=== PATIENT | male | born 1960 | race Caucasian/White ===

== ENCOUNTER 2019-10-01 09:26 | Inpatient (IN) | payer SELFPAY ==
[2019-10-01] VITALS (8 sets, daily range): BP systolic 115–132; BP diastolic 69–81; PULSE 58–86; RESP 16–18; TEMP 36.6–36.9; O2SAT 98–100; BMI 24.4
--- NOTE | ~2019-10-01 | XR_ITS ---
EXAMINATION: XR chest 1V portable DATE: 10/01/2019 10:58 INDICATION: Chronic obstructive pulmonary disease. Preop. TECHNIQUE: A single frontal view of the chest was obtained. COMPARISON: None. FINDINGS: Calcified right lung nodules are consistent with old granulomatous disease. No pleural effu miryam or pneumothorax. The heart size is normal. There are multiple old healed bilateral rib fractures . IMPRESSION: 1. No acute cardiopulmonary disease. Reviewed, dictated and finalized at location A. [employer] CENTER ASSOCIATE
--- NOTE | ~2019-10-01 | XR_ITS ---
XR surgery orthopedic 10/03/2019 10:52 Indication: Intraoperative fixation of left hip fracture Procedure: 4 fluoroscopic images of the left hip. 63 seconds of fluoroscopy. Comparison: 10/01/2019 Findings: Status post intraoperative repair of left femoral intertrochanteric fracture with trochlear nail and intramedullary josse. Fracture fragments in near-anatomic alignment post reduction. There is a single distal interlocking screw. Impression: 1: Near-anatomic alignment of left femoral intertrochanteric fracture status post intraoperative fixa tion. Reviewed, dictated and finalized at location B. ER HAND Impression: 1: Near-anatomic alignment of left femoral intertrochanteric fracture status po st intraoperative fixation.
--- NOTE | ~2019-10-01 | XR_ITS ---
EXAMINATION: XR hip LT 2V w AP pelvis DATE: 10/01/2019 10:14 INDICATION: Left hip pain and deformity. Fall. TECHNIQUE: An anteroposterior view of the pelvis and 2 views of left hip were obtained. COMPARISON: None. FINDINGS: There is a comminuted intertrochanteric fracture of proximal left femur. The main distal fr acture fragment demonstrates 35 degrees varus angulation, 11 mm posterior displacement, posterior ang ulation, and rotation. There is mild left hip osteoarthritis. IMPRESSION: 1. Comminuted intertrochanteric fracture of proximal left femur. 2. Mild left hip osteoarthrosis. Reviewed, dictated and finalized at location A. WAREHOUSE MANAGER
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
[2019-10-01] MEDS: HYDROMORPHONE HCL 1 MG/ML INJ IV PUSH ×3 (10:20→21:40)
--- NOTE | 2019-10-01 10:40 | ECG_ITS ---
Measurements Intervals [place] Rate: 51 P: 48 WA: 170 QRS: -63 QRSD: 85 T: 73 QT: 462 QTc: 426 Interpretive Statements SINUS BRADYCARDIA LEFT ANTERIOR FASCICULAR BLOCK ABNORMAL ECG Electronically Signed On 10-01-2019 12:06:52 PHLEBOTOMIST by Dae Lam D.O.
[2019-10-01] MEDS: MORPHINE SULFATE 4 MG/ML INJ IV PUSH (11:25)
[2019-10-01 11:31] LABS: Basophils Percent Auto 0.3 % (0.2-1.2); Hematocrit 41.7 % (42.0-52.0); Hemoglobin 14.2 g/dL (14.0-18.0); Immature Granulocyte Absolute 0.04 K/mm3 (0.00-0.031); Immature Granulocyte Percent A 0.4 % (0-0.5); Lymphocytes Absolute Auto 0.95 K/mm3 (0.9-3.2); Lymphocytes Percent Auto 9.7 % (18.3-44.2); Mean Corpuscular HGB Conc 34.1 g/dl (32-36); Mean Corpuscular Hemoglobin 33.8 pg (26-34); Mean Corpuscular Volume 99.3 fl (80-100); Mean Platelet Volume 10.5 fl (7.4-10.4); Monocytes Absolute Auto 1.1 K/mm3 (0.1-0.6); Monocytes Percent Auto 11.5 % (2.6-8.5); Neutrophils Absolute Auto 7.6 K/mm3 (1.3-6.7); Neutrophils Percent Auto 78.1 % (45.5-73.1); Platelet Count Result 154 k/mm3 (150-375); Red Cell Distribution Width 13.2 % (11.5-14.5); White Blood Count 9.8 K/mm3 (4.5-10.0)
[2019-10-01 11:40] LABS: INR 0.9; Prothrombin Time 12.3 Seconds (11.1-14.7)
[2019-10-01 11:41] LABS: Partial Thromboplastin Time 21.3 SECONDS (22.3-36.8)
[2019-10-01 11:44] LABS: Blood Urea Nitrogen 6 mg/dL (9-20); Calcium 8.3 mg/dL (8.4-10.2); Carbon Dioxide 21 mmol/L (22-30); Chloride 96 mmol/L (98-107); Estimated Glomerular Filt Rate > 60; Glucose 99 mg/dL (75-110); Sodium 130 mmol/L (137-145)
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
[2019-10-01] MEDS: ONDANSETRON INJ 4 MG/2 ML VIAL IV PUSH ×2 (16:01→21:45)
--- NOTE | 2019-10-01 16:41 | PC.NURSE ---
Patient arrived from ED at 1150 today.
[2019-10-01] MEDS: SODIUM CHLORIDE 0.9% IV 1,000 ML 100 ML IV CONT (17:34)
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
[2019-10-01] MEDS: PROPRANOLOL HCL 40 MG TABLET PO (22:43)
[2019-10-01] MEDS: GABAPENTIN 300 MG CAPSULE PO (22:43)
[2019-10-01] MEDS: NICOTINE (*PBKC) 21 MG PATCH 1 PATCH TRANSDERM (22:46)
[2019-10-02] MEDS: ONDANSETRON INJ 4 MG/2 ML VIAL IV PUSH ×2 (01:37→06:10)
[2019-10-02] MEDS: HYDROMORPHONE HCL 1 MG/ML INJ IV PUSH ×5 (01:38→23:33)
[2019-10-02] MEDS: SODIUM CHLORIDE 0.9% IV 1,000 ML 100 ML IV CONT ×2 (03:39→13:47)
[2019-10-02 06:00] VITALS: BP 146/71; PULSE 52; RESP 18; TEMP 37.1; O2SAT 94
[2019-10-02 06:37] LABS: Basophils Percent Auto 0.3 % (0.2-1.2); Eosinophils Absolute Auto 0.1 K/mm3 (0-0.3); Eosinophils Percent Auto 0.6 % (0-4.4); Hemoglobin 12.3 g/dL (14.0-18.0); Immature Granulocyte Absolute 0.03 K/mm3 (0.00-0.031); Immature Granulocyte Percent A 0.3 % (0-0.5); Immature Platelet Fraction Pct 7.4 % (0.9-11.2); Lymphocytes Absolute Auto 1.05 K/mm3 (0.9-3.2); Lymphocytes Percent Auto 11.8 % (18.3-44.2); Mean Corpuscular HGB Conc 32.4 g/dl (32-36); Mean Corpuscular Hemoglobin 33.9 pg (26-34); Mean Corpuscular Volume 104.7 fl (80-100); Mean Platelet Volume 11.3 fl (7.4-10.4); Monocytes Absolute Auto 1.2 K/mm3 (0.1-0.6); Monocytes Percent Auto 13.6 % (2.6-8.5); Neutrophils Absolute Auto 6.6 K/mm3 (1.3-6.7); Neutrophils Percent Auto 73.4 % (45.5-73.1); Platelet Count Result 109 k/mm3 (150-375); Red Blood Count 3.63 M/mm3 (4.6-6.20); Red Cell Distribution Width 13.4 % (11.5-14.5); White Blood Count 8.9 K/mm3 (4.5-10.0)
[2019-10-02 07:01] LABS: Magnesium 1.9 mg/dL (1.6-2.3)
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
[2019-10-02 08:08] LABS: Free T4 Free Thyroxine Reflex 1.49 ng/dL (0.78-2.19)
[2019-10-02 09:03] LABS: Total Triiodothyronine (T3) 0.98 NG/ML (0.97-1.69)
[2019-10-02 09:10] LABS: Blood Urea Nitrogen 8 mg/dL (9-20); Carbon Dioxide 23 mmol/L (22-30); Chloride 100 mmol/L (98-107); Estimated CRCL calculation 104 ml/min; Estimated Glomerular Filt Rate > 60; Glucose 98 mg/dL (75-110); Potassium 4.3 mmol/L (3.4-5.0); Sodium 132 mmol/L (137-145)
[2019-10-02 09:30] VITALS: BP 121/78; PULSE 58; RESP 18; TEMP 36.7; O2SAT 94
[2019-10-02 09:43] VITALS: PULSE 48
[2019-10-02] MEDS: THIAMINE HCL 100 MG TABLET PO (09:46)
[2019-10-02] MEDS: FOLIC ACID 1 MG TABLET PO (09:46)
[2019-10-02] MEDS: GABAPENTIN 300 MG CAPSULE PO ×3 (09:46→18:13)
--- NOTE | 2019-10-02 11:17 | PM.IMPN ---
Progress Note: A&P Assessment and Plan (1) Closed intertrochanteric fracture of left hip: Qualifiers: Encounter type: initial encounter Fracture alignment: displaced Qualified Code(s): S72.142A - Displaced intertrochanteric fracture of left femur, initial encounter for closed fracture Code(s): S72.142A - Displaced intertrochanteric fracture of left femur, initial encounter for closed fracture Status: Acute Assessment and Plan: Imaging shows comminuted intertrochanteric fracture proximal left femur. Appreciate Dr. Sheridan's recommendations and noted his plan for surgery tomorrow. Pain management and DVT prophylaxis per Orthopedics. He does have a history of multiple DVTs in the past (one in the left upper extremity a few years ago that resulted in partial amputation left 4th finger, remote history right leg DVT; was previously on chronic anticoagulation with Coumadin but has been off Coumadin for years per the patient.) (2) HTN (hypertension): Code(s): I10 - Essential (primary) hypertension Status: Chronic Assessment and Plan: Home propranolol held this morning due to bradycardia and pressures were controlled today without it. Continue to monitor BP and adjust as needed. (3) COPD (chronic obstructive pulmonary disease): Code(s): J44.9 - Chronic obstructive pulmonary disease, unspecified Status: Chronic Assessment and Plan: With continued tobacco abuse. Smoking cessation advised. Nebulized bronchodilators as needed. No evidence of respiratory distress today. (4) Anxiety: Code(s): F41.9 - Anxiety disorder, unspecified Status: Chronic Assessment and Plan: Calm and cooperative today. PRN Ativan. (5) Alcoholic: Code(s): F10.20 - Alcohol dependence, uncomplicated Status: Chronic Assessment and Plan: No signs or symptoms of acute withdrawal today. Continue monitoring with CIWA protocol. Librium PRN, thiamine and folic acid. (6) Hyponatremia: Code(s): E87.1 - Hypo-osmolality and hyponatremia Status: Acute Assessment and Plan: Likely secondary to alcohol use disorder. Continue IV hydration and monitor BMP. Subjective Date/time seen: 10/02/19 11:00 Interval history: Mr. Friedman is a 59yo M admitted for left hip fracture. He is unsure how he sustained this fracture, noted to be under the influence and thinks he may have fell but he does not remember. He reports left hip pain 02/09 at time of my exam but otherwise offers no complaints. He denies any chest pain, shortness of breath, nausea, or vomiting. He denies any sweating or anxiousness. Review of Systems Review of Systems: Narrative: Twelve systems were reviewed with pertinent positives and negatives as per HPI. Exam Narrative: Exam Narrative: General: Male resting supine in bed in no acute distress. HEENT: Normocephalic, EOMI, oral mucosa tacky, poor dentition. Cardiovascular: Rate and rhythm regular. Respiratory: Lungs clear to auscultation anteriorly and laterally. Non labored breathing, tolerating room air. Abdomen: Soft, non-tender, non-distended, bowel sounds present. Extremities: Left lower extremity in Esteves's traction, bilateral lower extremities neurovascularly intact. No edema appreciated. Neuro: No focal neurological deficits. Speech is clear. Objective Data Vital Signs Vital Signs: Last Vital Signs Temp 98.9 F 10/02/19 14:00 Pulse 57 L 10/02/19 14:00 Resp 18 10/02/19 14:00 BP 130/75 10/02/19 14:00 Pulse Ox 97 10/02/19 14:00 Intake/Output Intake/Output: Intake & Output 09/29/19 09/30/19 10/01/19 10/02/19 23:59 23:59 23:59 23:59 Intake Total 350 1309 Output Total 625 300 Balance -275 1009 Meds/Results Medications: A
[2019-10-02 14:00] VITALS: BP 130/75; PULSE 57; RESP 18; TEMP 37.2; O2SAT 97
[2019-10-02 16:00] VITALS: BP 151/81
[2019-10-02 22:00] VITALS: BP 116/87; PULSE 65; RESP 20; TEMP 37.4; O2SAT 98
[2019-10-03] VITALS (12 sets, daily range): BP systolic 111–155; BP diastolic 68–98; PULSE 56–85; RESP 12–20; TEMP 36.2–37.6; O2SAT 93–100
[2019-10-03] MEDS: HYDROMORPHONE HCL 1 MG/ML INJ IV PUSH (05:51)
[2019-10-03] MEDS: ceFAZolin 2 GM/D5W 50 ML 2 GM/50 ML BAG IVPB ×3 (05:54→22:24)
[2019-10-03 06:23] LABS: Hemoglobin 11.6 g/dL (14.0-18.0)
[2019-10-03 06:40] LABS: Blood Urea Nitrogen 5 mg/dL (9-20); Calcium 7.6 mg/dL (8.4-10.2); Carbon Dioxide 25 mmol/L (22-30); Chloride 99 mmol/L (98-107); Estimated CRCL calculation 104 ml/min; Estimated Glomerular Filt Rate > 60; Glucose 90 mg/dL (75-110); Magnesium 1.9 mg/dL (1.6-2.3); Potassium 4.1 mmol/L (3.4-5.0); Sodium 132 mmol/L (137-145)
--- NOTE | 2019-10-03 06:50 | PC.NURSE ---
notified that pt's pre-op antibiotic was already given this am. Orders received and entered. Pt. made aware that his pre-op antibiotic was given too early by mistake and that wants his dose of antibiotic to be repeated electronic engineering draftsperson to OR. Pt verbalizes understanding and is in agreement with this plan of care.
[2019-10-03] MEDS: LACTATED RINGERS 1,000 ML 30 ML IV CONT ×2 (08:30→11:06)
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
[2019-10-03] MEDS: ceFAZolin SODIUM 1 GM VIAL IV PUSH (09:23)
--- NOTE | 2019-10-03 09:48 | PC.NURSE ---
To OR per bed at 0810. Family at bedside, no complaints of pain, alert and orientated x3.
--- NOTE | 2019-10-03 10:17 | SUR.OPER ---
Indwelling catheter charted in error-rachel klein rn
--- NOTE | 2019-10-03 11:13 | PM.PROC ---
Procedure Note - Detailed Date of procedure: 10/03/19 Pre-op diagnosis: intertrochanteric hip fracture left Post-op diagnosis: same Procedure performed: ORIF left IT hip fracture Description of procedure: The patient was identified and proper site identified, then was taken to the operating room and after general anesthetic induction and intubation was transferred to the [place] table positioning supine taking care to properly pad position the torso and extremities. A provisional reduction was able to be obtained with fluoroscopic assistance. The left hip and thigh was then prepped and draped in the usual sterile fashion. A short incision was made proximal to the tip of the greater trochanter. Subcutaneous tissue was sharply dissected down to the gluteus fascia which was incised over the tip of the greater trochanter. An awl was used to create a starting hole through which a guide josse was inserted into the femoral canal verifying its position fluoroscopically. The one-step Reamer was used to prepare the entry point for the josse. A 125 degree x 11 mm short nail was then inserted to the appropriate level using the targeting device. Through a 2nd more distal incision under fluoroscopic visualization a 105 mm lag screw was inserted over a guidewire into the femoral neck and head securing it with the set screw. Through a 3rd more distal incision, using the targeting device, a distal interlocking screw was placed. The overall construct was assessed fluoroscopically on the AP and lateral views, and was noted to be satisfactory. The targeting device was removed. The wounds were irrigated with sterile antibiotic solution. The fascia was reapproximated with 0 Vicryl as was the deeper layers of the subcu along with 0 V lock. Skin edges were reapproximated with four 0 Monocryl and jewell. Sterile dressing was applied. The procedure was well tolerated. There were no known intraoperative complications. Perioperative antibiotics were administered. Anesthesia: GLMA Surgeon: Sánchez Sheridan MD Utility Worker Production: Jordon Casarez Estimated blood loss (mL): 50 Drains: No Packing: No Pathology: none sent Complications: No immediate complications Condition: stable Disposition: PACU
--- NOTE | 2019-10-03 11:54 | SUR.PHASEI ---
1148; REPORT FAXED TO FLOOR. PT AWAKE AND ALERT. STATES PAIN TOLERABLE. ATTEMPTED TO UPDATE FAMILY. AT LUNCH. 1154; REPORT GIVEN TO TATI ANNA
[2019-10-03] MEDS: NICOTINE (*PBKC) 21 MG PATCH 1 PATCH TRANSDERM (13:54)
[2019-10-03] MEDS: FOLIC ACID 1 MG TABLET PO (13:57)
[2019-10-03] MEDS: THIAMINE HCL 100 MG TABLET PO (13:58)
[2019-10-03] MEDS: SODIUM CHLORIDE 0.9% IV 1,000 ML 125 ML IV CONT (13:58)
[2019-10-03] MEDS: GABAPENTIN 300 MG CAPSULE PO ×2 (14:00→17:34)
--- NOTE | 2019-10-03 14:11 | PM.IMPN ---
Progress Note: A&P Assessment and Plan (1) Closed intertrochanteric fracture of left hip: Qualifiers: Encounter type: initial encounter Fracture alignment: displaced Qualified Code(s): S72.142A - Displaced intertrochanteric fracture of left femur, initial encounter for closed fracture Code(s): S72.142A - Displaced intertrochanteric fracture of left femur, initial encounter for closed fracture Status: Acute Assessment and Plan: Imaging shows comminuted intertrochanteric fracture proximal left femur. POD#0 s/p ORIF by Dr Sheridan. Wound care, pain control, and DVT prophylaxis per Orthopedics. 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 Resume propranolol today and monitor. (3) COPD (chronic obstructive pulmonary disease): Code(s): J44.9 - Chronic obstructive pulmonary disease, unspecified Status: Chronic Assessment and Plan: With continued tobacco abuse. Smoking cessation advised. Nebulized bronchodilators as needed. No evidence of respiratory distress today. (4) Anxiety: Code(s): F41.9 - Anxiety disorder, unspecified Status: Chronic Assessment and Plan: Calm and cooperative today. PRN Ativan. (5) Alcoholic: Code(s): F10.20 - Alcohol dependence, uncomplicated Status: Chronic Assessment and Plan: No signs or symptoms of acute withdrawal today. Continue monitoring with CIWA protocol. Librium PRN, thiamine and folic acid. (6) Hyponatremia: Code(s): E87.1 - Hypo-osmolality and hyponatremia Status: Acute Assessment and Plan: Likely secondary to alcohol use disorder. Continue IV hydration and monitor BMP. Subjective Date/time seen: 10/03/19 1345 Interval history: Mr. Friedman is a 59yo M admitted for left hip fracture seen this afternoon just after coming back from surgery. He reports he is tired but denies chest pain, nausea, or vomiting. Offers no complaints. Review of Systems Review of Systems: Narrative: Twelve systems were reviewed with pertinent positives and negatives as per HPI. Exam Narrative: Exam Narrative: General: Male resting supine in bed in no acute distress. HEENT: Normocephalic, EOMI, oral mucosa tacky, poor dentition. Cardiovascular: Rate and rhythm regular. Respiratory: Lungs clear to auscultation anteriorly and laterally. Non labored breathing, tolerating room air. Abdomen: Soft, non-tender, non-distended, bowel sounds present. Extremities: Dressings over left hip with minimal blood. Left lower extremity neurovascularly intact distal to the surgical site. No edema appreciated. Neuro: No focal neurological deficits. Speech is clear. Objective Data Vital Signs Vital Signs: Last Vital Signs Temp 97.1 F L 10/03/19 13:25 Pulse 66 10/03/19 13:25 Resp 16 10/03/19 13:25 BP 111/68 10/03/19 13:25 Pulse Ox 100 10/03/19 13:25 Intake/Output Intake/Output: Intake & Output 09/30/19 10/01/19 10/02/19 10/03/19 23:59 23:59 23:59 23:59 Intake Total 350 4290 900 Output Total 625 1500 1200 Balance -275 2790 -300 Meds/Results Medications: Active Medications Generic Name Dose Route Start Last Admin Trade Name Freq PRN Reason Stop Dose Admin Hydrocodone Bitart/Acetaminophen 1 tab 10/03/19 12:18 10/03/19 13:55 [place] 7.5-325 Mg PO 1 tab Q3H PRN Administration
--- NOTE | 2019-10-03 14:46 | PC.NURSE ---
Returned from OR at 1230.
[2019-10-03] MEDS: KETOROLAC 30 MG/ML VIAL (*BKC) IV PUSH ×2 (17:34→22:57)
[2019-10-03] MEDS: DOCUSATE SODIUM 100 MG CAPSULE PO (17:36)
[2019-10-03] MEDS: FAMOTIDINE 20 MG TABLET PO (21:41)
[2019-10-04] VITALS (7 sets, daily range): BP systolic 126–155; BP diastolic 61–85; PULSE 63–72; RESP 16–18; TEMP 36.6–37.1; O2SAT 93–100
[2019-10-04] MEDS: KETOROLAC 30 MG/ML VIAL (*BKC) IV PUSH (05:35)
[2019-10-04] MEDS: ceFAZolin 2 GM/D5W 50 ML 2 GM/50 ML BAG IVPB (05:39)
[2019-10-04 06:03] LABS: Hematocrit 29.9 % (42.0-52.0); Immature Granulocyte Absolute 0.07 K/mm3 (0.00-0.031); Immature Granulocyte Percent A 0.7 % (0-0.5); Lymphocytes Absolute Auto 0.66 K/mm3 (0.9-3.2); Lymphocytes Percent Auto 6.8 % (18.3-44.2); Mean Corpuscular HGB Conc 33.4 g/dl (32-36); Mean Corpuscular Hemoglobin 33.9 pg (26-34); Mean Corpuscular Volume 101.4 fl (80-100); Mean Platelet Volume 11.4 fl (7.4-10.4); Monocytes Absolute Auto 1.1 K/mm3 (0.1-0.6); Neutrophils Absolute Auto 7.9 K/mm3 (1.3-6.7); Neutrophils Percent Auto 81.5 % (45.5-73.1); Platelet Count Result 123 k/mm3 (150-375); Red Blood Count 2.95 M/mm3 (4.6-6.20); White Blood Count 9.7 K/mm3 (4.5-10.0)
[2019-10-04 06:20] LABS: Blood Urea Nitrogen 6 mg/dL (9-20); Calcium 7.8 mg/dL (8.4-10.2); Carbon Dioxide 24 mmol/L (22-30); Chloride 99 mmol/L (98-107); Estimated CRCL calculation 104 ml/min; Estimated Glomerular Filt Rate > 60; Glucose 109 mg/dL (75-110); Potassium 3.9 mmol/L (3.4-5.0); Sodium 133 mmol/L (137-145)
--- NOTE | 2019-10-04 07:43 | P.PNAN_ITS ---
Anes - Prog Note Post-Op Date/Time: 10/04/19 07:43 Cardiovascular status: normal Respiratory status: normal Airway patency: baseline Mental status: baseline Post-Op hydration status: normal Vital Signs: Last Vital Signs Temp 36.8 C 10/04/19 06:00 Pulse 63 10/04/19 06:00 Resp 16 10/04/19 06:00 BP 135/71 10/04/19 06:00 Pulse Ox 100 10/04/19 06:00 I/O: Intake & Output 10/03/19 10/03/19 10/04/19 15:59 23:59 07:59 Intake Total 400 1050 500 Output Total 200 500 800 Balance 200 550 -300 Laboratory Tests 10/04/19 05:45 10/04/19 05:45 10/04/19 10/04/19 05:45 05:45 WBC 9.7 RBC 2.95 L Hgb 10.0 L Hct 29.9 L MCV 101.4 H MCH 33.9 MCHC 33.4 RDW 13.0 Plt Count 123 L MPV 11.4 H Immature Gran % (Auto) 0.7 H Neut % (Auto) 81.5 H Lymph % (Auto) 6.8 L [place] % (Auto) 11.0 H Eos % (Auto) 0.0 Baso % (Auto) 0.0 L Lymph # (Auto) 0.66 L [place] # (Auto) 1.1 H Eos # (Auto) 0.0 Baso # (Auto) 0.0 Abs Immat Gran (auto) 0.07 H Absolute Neuts (auto) 7.9 H Absolute Nucleated RBC 0.0 Nucleated RBC % 0.0 Sodium 133 L Potassium 3.9 Chloride 99 Carbon Dioxide 24 BUN 6 L Creatinine 0.60 L Estim Creat Clear Calc 104 Estimated GFR > 60 Glucose 109 Calcium 7.8 L Post-procedural complaints: none Patient Feedback: Patient satisfied with anesthetic care.
[2019-10-04] MEDS: FAMOTIDINE 20 MG TABLET PO ×2 (09:08→21:15)
[2019-10-04] MEDS: FOLIC ACID 1 MG TABLET PO (09:08)
[2019-10-04] MEDS: DOCUSATE SODIUM 100 MG CAPSULE PO ×2 (09:08→17:56)
[2019-10-04] MEDS: NICOTINE (*PBKC) 21 MG PATCH 1 PATCH TRANSDERM (09:08)
[2019-10-04] MEDS: GABAPENTIN 300 MG CAPSULE PO ×3 (09:08→17:56)
[2019-10-04] MEDS: THIAMINE HCL 100 MG TABLET PO (09:11)
[2019-10-04] MEDS: ENOXAPARIN 40 MG/0.4 ML SYRINGE SUB-Q (12:03)
--- NOTE | 2019-10-04 12:34 | PM.PNORT ---
Progress Note: A&P Assessment and Plan (1) Closed intertrochanteric fracture of left hip: Qualifiers: Encounter type: initial encounter Fracture alignment: displaced Qualified Code(s): S72.142A - Displaced intertrochanteric fracture of left femur, initial encounter for closed fracture Code(s): S72.142A - Displaced intertrochanteric fracture of left femur, initial encounter for closed fracture Status: Acute Assessment and Plan: therapy has begun. He likely is going to need replacement. He understands that he is going to be toe-touch weight-bearing left lower extremity for a minimum of eight weeks. Following. Subjective Subjective Date/Time Seen: 10/04/19 12:34 Post Op day: 1 ( Status post ORIF left IT hip fracture) Review of Systems Constitutional: Constitutional: Denies chills and Denies fever(s) Eyes: Eyes: Reports no additional eye complaints ENT: Reports system reviewed and no additional complaints, except as documented Cardiovascular: Cardiovascular: Denies chest pain and Denies dyspnea on exertion Respiratory: Respiratory: Reports no additional respiratory complaints and Denies dyspnea on exertion Gastrointestinal: Gastrointestinal: Denies abdominal pain and Denies bloating Exam Const: General: cooperative, no acute distress and alert Nutritional Appearance: other Orientation/consciousness: patient oriented x3 Limitations: no limitations HENMT: Head: normal to inspection Ears: hearing grossly normal bilaterally Face and sinus: face symmetric Mouth: Yes moist mucous membranes Teeth and gingiva: dentition not fair Eyes: Alignment and Position: alignment normal and position normal Sclera: sclerae normal Neck: Neck: normal visual inspection and nontender Chest: Chest palpation & inspection: normal inspection of the chest Resp: Effort & Inspection: normal respiratory effort and able to speak in complete sentences GI: Inspection: normal to inspection Skin: General skin exam: normal color Rashes: no rashes Neuro: General: patient oriented x3 Cognition (Neuro): normal cognition Speech: normal speech Gait exam (Neuro): Other gait observations present Motor exam (neuro): 5/5 motor strength present throughout Sensory Exam: normal sensation Extrem: General: normal to inspection and other Other: Exam of the left hip reveals some bruising as expected, minimal additional swelling. There is scant serosanguineous drainage from the wounds. Grossly, neurovascular status is intact left lower extremity. Calves negative bilaterally. Psych: Appearance: grossly normal Mental Status: mental status grossly normal Objective Data Vital Signs Vital Signs: Vital Signs - 24 hr 10/03/19 12:40 10/03/19 12:55 10/03/19 13:25 Temperature 97.6 F 98.0 F 97.1 F L Pulse Rate 77 81 66 Respiratory Rate 16 16 16 Blood Pressure 119/84 125/74 111/68 Pulse Oximetry 100 93 100 10/03/19 14:25 10/03/19 22:00 10/04/19 02:00 Temperature 97.2 F L 98.7 F 98 F Pulse Rate 56 L 76 71 Respiratory Rate 16 16 16 Blood Pressure 136/82 137/79 129/61 Pulse Oximetry 100 100 93 10/04/19 06:00 10/04/19 09:35 10/04/19 10:00 Temperature 98.2 F 98.6 F Pulse Rate 63 70 Respiratory Rate 16 17 Blood Pressure 135/71 132/70 Pulse Oximetry 100 99 100 Intake/Output Intake/Output: Intake & Output 10/01/19 10/02/19 10/03/19 10/04/19 23:59 23:59 23:59 23:59 Intake Total 350 / 350 4290 / 4290 2000 / 2000 500 / 500 Output Total 625 / 625 1500 / 1500 1700 / 1700 800 / 800 Balance -275 / -275 2790 / 2790 300 / 300 -300 / -300 Meds/Results Medications: Active Medications Generic Name Dose Route Start Last Admin Trade Name Freq PRN Reason Stop Dose Admin Hydrocodone Bitart/Acetaminophen 1 tab 10/03/19 12:18 10/04/19 09:12 [place] 7.5-325 Mg PO 1 tab Q3H PRN Administration Pain Rated 4-6 Al Hydrox/Mg Hydrox/Simethicone 30 ml 10/03/19 12:18 Mylanta PO Q6H PRN I
--- NOTE | 2019-10-04 16:18 | PM.IMPN ---
Progress Note: A&P Assessment and Plan (1) Closed intertrochanteric fracture of left hip: Qualifiers: Encounter type: initial encounter Fracture alignment: displaced Qualified Code(s): S72.142A - Displaced intertrochanteric fracture of left femur, initial encounter for closed fracture Code(s): S72.142A - Displaced intertrochanteric fracture of left femur, initial encounter for closed fracture Status: Acute Assessment and Plan: -----POD # [address] Sheridan. Imaging in the ER shows comminuted intertrochanteric fracture proximal left femur. Wound care, pain control, and DVT prophylaxis per Orthopedics. 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 Continue propranolol (3) COPD (chronic obstructive pulmonary disease): Code(s): J44.9 - Chronic obstructive pulmonary disease, unspecified Status: Chronic Assessment and Plan: ------With continued tobacco abuse. Smoking cessation advised. Nebulized bronchodilators as needed. No evidence of respiratory distress today but did have some wheezing. No Pna suspected. Encouraged IS use. (4) Anxiety: Code(s): F41.9 - Anxiety disorder, unspecified Status: Chronic Assessment and Plan: -----Calm and cooperative today. PRN Ativan. (5) Alcoholic: Code(s): F10.20 - Alcohol dependence, uncomplicated Status: Chronic Assessment and Plan: -------No signs or symptoms of acute withdrawal today. Continue monitoring with CIWA protocol. Librium PRN, thiamine and folic acid. (6) Hyponatremia: Code(s): E87.1 - Hypo-osmolality and hyponatremia Status: Acute Assessment and Plan: ------Likely secondary to alcohol use disorder and pain. 133 today. Additional Plan . Time Spent With Patient Time with patient: 25 - 35 minutes Subjective Date/time seen: 10/04/19 16:18 Interval history: Pt is a 59 y/o male here for hip fracture. Pt states he has hip pain at rest which is worse with movement. He had a BM today and has been eating and drinking well. he denies visual disturbances or hallucinations. He feels as though he is a little wheezy. He denies cP, SOB, fevers, or chills. Review of Systems Review of Systems: All systems reviewed & are unremarkable except as noted in HPI and below Exam Narrative: Exam Narrative: General: Well developed well nourished patient resting in bed in NAD HEENT: normocephalic Neck: supple Neuro: Alert and oriented x4. no tremor CV:RRR Resp: expiratory wheezing throughout. cleared with cough and deep breaths. Abd: Soft, non distended. No pain to palpation. Positive bowel sounds Extremities: Bruising to the left hip with flank brusing and penile involvment. Pain to palpation. Some mild bleed at the surgical site. Pulses and sensory intact. Objective Data Vital Signs Vital Signs: Vital Signs - 24 hr 10/03/19 22:00 10/04/19 02:00 10/04/19 06:00 Temperature 98.7 F 98 F 98.2 F Pulse Rate 76 71 63 Respiratory Rate 16 16 16 Blood Pressure 137/79 129/61 135/71 Pulse Oximetry 100 93 100 10/04/19 09:35 10/04/19 10:00 10/04/19 14:00 Temperature 98.6 F 98.2 F Pulse Rate 70 71 Respiratory Rate 17 16 Blood Pressure 132/70 126/85 Pulse Oximetry 99 100 100 Intake/Output Intake/Output: Intake & Output 10/01/19 10/02/19 10/03/19 10/04/19 23:59 23:59 23:59 23:59 Intake Total 350 4290 2000 740 Output Total 625 1500 1700 800 Balance -275 2790 300 -60 Meds/Results Medications: Active Medications Generi
[2019-10-05 06:08] LABS: Hematocrit 29.5 % (42.0-52.0); Hemoglobin 9.9 g/dL (14.0-18.0)
[2019-10-05 06:30] LABS: Blood Urea Nitrogen 5 mg/dL (9-20); Calcium 7.5 mg/dL (8.4-10.2); Carbon Dioxide 28 mmol/L (22-30); Chloride 100 mmol/L (98-107); Estimated CRCL calculation 91 ml/min; Estimated Glomerular Filt Rate > 60; Glucose 85 mg/dL (75-110); Potassium 3.5 mmol/L (3.4-5.0); Sodium 135 mmol/L (137-145)
[2019-10-05 06:33] VITALS: BP 119/60; PULSE 56; RESP 16; TEMP 36.6; O2SAT 96
[2019-10-05 07:36] LABS: Folic Acid 12.6 ng/mL (2.76->20)
[2019-10-05] MEDS: DOCUSATE SODIUM 100 MG CAPSULE PO ×2 (08:02→17:37)
[2019-10-05] MEDS: THIAMINE HCL 100 MG TABLET PO (08:02)
[2019-10-05] MEDS: FAMOTIDINE 20 MG TABLET PO ×2 (08:02→20:46)
[2019-10-05] MEDS: GABAPENTIN 300 MG CAPSULE PO ×3 (08:02→17:37)
[2019-10-05] MEDS: FOLIC ACID 1 MG TABLET PO (08:02)
[2019-10-05] MEDS: NICOTINE (*PBKC) 21 MG PATCH 1 PATCH TRANSDERM (08:04)
[2019-10-05] MEDS: CYANOCOBALAMIN INJ 1,000 MCG/ML VIAL 1000 MCG IM (13:14)
[2019-10-05] MEDS: ENOXAPARIN 40 MG/0.4 ML SYRINGE SUB-Q (13:23)
--- NOTE | 2019-10-05 15:08 | PM.IMPN ---
Progress Note: A&P Assessment and Plan (1) Closed intertrochanteric fracture of left hip: Qualifiers: Encounter type: initial encounter Fracture alignment: displaced Qualified Code(s): S72.142A - Displaced intertrochanteric fracture of left femur, initial encounter for closed fracture Code(s): S72.142A - Displaced intertrochanteric fracture of left femur, initial encounter for closed fracture Status: Acute Assessment and Plan: -----POD # [address] Sheridan. Imaging in the ER shows comminuted intertrochanteric fracture proximal left femur. Wound care, pain control, and DVT prophylaxis per Orthopedics. 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 Ortho recoomends 5mg BID of eliquis at discharge and to discharge to SNF. Awaiting SNF placement. (2) HTN (hypertension): Code(s): I10 - Essential (primary) hypertension Status: Chronic Assessment and Plan: ------119/60 Continue propranolol (3) COPD (chronic obstructive pulmonary disease): Code(s): J44.9 - Chronic obstructive pulmonary disease, unspecified Status: Chronic Assessment and Plan: ------With continued tobacco abuse. Smoking cessation advised. Nebulized bronchodilators as needed. No evidence of respiratory distress today but did have some wheezing which has improved since yesterday. No PNA suspected. Encouraged IS use. (4) Anxiety: Code(s): F41.9 - Anxiety disorder, unspecified Status: Chronic Assessment and Plan: -----Calm and cooperative today. PRN Ativan. (5) Alcoholic: Code(s): F10.20 - Alcohol dependence, uncomplicated Status: Chronic Assessment and Plan: -------No signs or symptoms of acute withdrawal today. CIWA no longer necessary. low on b12, this was replaced. Continue thiamin and folate (6) Hyponatremia: Code(s): E87.1 - Hypo-osmolality and hyponatremia Status: Acute Assessment and Plan: ------Likely secondary to alcohol use disorder and pain. 135 today. Additional Plan . Subjective Date/time seen: 10/05/19 15:08 Interval history: Pt is a 59 y/o male here for hip fracture. Pt states he has hip pain at rest which is worse with movement. He had a BM yesterday but none today. He did well with physical therapy and really wants to go home. I explained to him why it is being recommended that he goes to SNF. He said he will think about it. He says he drinks about 1-2 beers a day and his last drink was on Thursday. He has not had any withdrawal symptoms such as seizures, tremors, or hallucinations. He denies cP, SOB, fevers, or chills. Review of Systems Review of Systems: All systems reviewed & are unremarkable except as noted in HPI and below Exam Narrative: Exam Narrative: General: Well developed well nourished patient resting in bed in NAD HEENT: normocephalic Neck: supple Neuro: Alert and oriented x4. no tremor CV:RRR Resp: Mild expiratory wheezing throughout. cleared with cough and deep breaths--improved today. Abd: Soft, non distended. No pain to palpation. Positive bowel sounds Extremities: Bruising to the left hip with flank brusing and penile involvement. Pain to palpation. Some mild bleed at the surgical site on the gauze. Pulses and sensory intact. Objective Data Vital Signs Vital Signs: Vital Signs - 24 hr 10/04/19 17:41 10/04/19 22:00 10/05/19 06:33 Temperature 98.7 F 97.9 F 98 F Pulse Rate 69 72 56 L Respiratory Rate 18 18 16 Blood Pressure 155/76 H 149/75 H 119/60 Pulse Oximetry 100 100 96 Intake/Output Intake/Output: Intake & Output 10/02/19 10/03/19 10/04/19 10/05/19 23:59 23:59 23:59 23:59 Intake Total
[2019-10-05 22:05] VITALS: BP 135/85; PULSE 66; RESP 18; TEMP 36.9; O2SAT 100
[2019-10-06 06:00] VITALS: BP 127/77; PULSE 65; RESP 16; TEMP 36.8; O2SAT 92
[2019-10-06 06:51] LABS: Hematocrit 32.8 % (42.0-52.0); Hemoglobin 10.7 g/dL (14.0-18.0)
[2019-10-06 06:59] LABS: Blood Urea Nitrogen 6 mg/dL (9-20); Calcium 7.9 mg/dL (8.4-10.2); Carbon Dioxide 23 mmol/L (22-30); Chloride 102 mmol/L (98-107); Estimated CRCL calculation 91 ml/min; Estimated Glomerular Filt Rate > 60; Glucose 87 mg/dL (75-110); Potassium 3.7 mmol/L (3.4-5.0); Sodium 135 mmol/L (137-145)
[2019-10-06] MEDS: DOCUSATE SODIUM 100 MG CAPSULE PO ×2 (08:57→17:56)
[2019-10-06] MEDS: ENOXAPARIN 40 MG/0.4 ML SYRINGE SUB-Q (08:57)
[2019-10-06] MEDS: FAMOTIDINE 20 MG TABLET PO ×2 (08:58→20:43)
[2019-10-06] MEDS: FOLIC ACID 1 MG TABLET PO (08:58)
[2019-10-06] MEDS: NICOTINE (*PBKC) 21 MG PATCH 1 PATCH TRANSDERM (08:58)
[2019-10-06] MEDS: GABAPENTIN 300 MG CAPSULE PO ×3 (08:58→17:56)
[2019-10-06] MEDS: THIAMINE HCL 100 MG TABLET PO (08:58)
[2019-10-06] MEDS: CYANOCOBALAMIN 1,000 MCG TABLET 1000 MCG PO (09:00)
--- NOTE | 2019-10-06 10:54 | PM.PNORT ---
Progress Note: A&P Assessment and Plan (1) Closed intertrochanteric fracture of left hip: Qualifiers: Encounter type: initial encounter Fracture alignment: displaced Qualified Code(s): S72.142A - Displaced intertrochanteric fracture of left femur, initial encounter for closed fracture Code(s): S72.142A - Displaced intertrochanteric fracture of left femur, initial encounter for closed fracture Status: Acute Assessment and Plan: Postop day three left IT hip fracture stabilization. Making good progress. Awaiting placement. I discussed with him the benefits of rehab versus trying to go home. Following. Subjective Subjective Date/Time Seen: 10/06/19 10:54 Post Op day: 3 (ORIF left IT hip fracture) Interval history: Doing better and tolerating therapy quite well. No new complaints. Review of Systems Constitutional: Constitutional: Denies chills and Denies fever(s) Eyes: Eyes: Reports no additional eye complaints ENT: Reports system reviewed and no additional complaints, except as documented Cardiovascular: Cardiovascular: Denies chest pain and Denies dyspnea on exertion Respiratory: Respiratory: Reports no additional respiratory complaints and Denies dyspnea on exertion Gastrointestinal: Gastrointestinal: Denies abdominal pain and Denies bloating Exam Const: General: cooperative, no acute distress and alert Nutritional Appearance: other Orientation/consciousness: patient oriented x3 Limitations: no limitations HENMT: Head: normal to inspection Ears: hearing grossly normal bilaterally Face and sinus: face symmetric Mouth: Yes moist mucous membranes Teeth and gingiva: poor dentition Eyes: Alignment and Position: alignment normal and position normal Sclera: sclerae normal Neck: Neck: normal visual inspection and nontender Chest: Chest palpation & inspection: normal inspection of the chest Resp: Effort & Inspection: normal respiratory effort and able to speak in complete sentences GI: Inspection: other (Nontender, nondistended) Skin: General skin exam: normal color Rashes: no rashes Neuro: General: patient oriented x3 Cognition (Neuro): normal cognition Speech: normal speech Motor exam (neuro): Other motor observations present (Decent strength throughout left lower extremity) Sensory Exam: normal sensation Extrem: General: normal to inspection and other Other: Exam of the left hip wounds shows that there is still some serosanguineous drainage coming from the proximal wound but no erythema surrounding this. Minimal discomfort with manipulation of the left hip. Grossly, motor and sensory function to the left lower extremity is intact. Psych: Appearance: grossly normal Mental Status: mental status grossly normal Objective Data Vital Signs Vital Signs: Vital Signs - 24 hr 10/05/19 22:05 10/06/19 06:00 Temperature 98.4 F 98.3 F Pulse Rate 66 65 Respiratory Rate 18 16 Blood Pressure 135/85 127/77 Pulse Oximetry 100 92 Intake/Output Intake/Output: Intake & Output 10/03/19 10/04/19 10/05/19 10/06/19 23:59 23:59 23:59 23:59 Intake Total 1999 1530 / 1530 940 / 940 300 / 300 Output Total 1700 / 1700 800 / 800 1000 / 1000 Balance 300 / 300 730 / 730 -60 / -60 300 / 300 Meds/Results Medications: Active Medications Generic Name Dose Route Start Last Admin Trade Name Freq PRN Reason Stop Dose Admin Hydrocodone Bitart/Acetaminophen 1 tab 10/03/19 12:18 10/05/19 20:50 [place] 7.5-325 Mg PO 1 tab Q3H PRN Administration Pain Rated 4-6 Al Hydrox/Mg Hydrox/Simethicone 30 ml 10/03/19 12:18 Mylanta PO Q6H PRN Indigestion Chlordiazepoxide HCl 25 mg 10/01/19 22:17 Librium Po PO Q6H PRN Withdrawal Cyanocobalamin 1,000 mcg 10/06/19 09:00 Vitamin B-12 Tab PO QAM SELENA Docusate Sodium 100 mg 10/03/19 17:00 10/06/19 08:57 Colace Capsule PO 100 mg BID SELENA Administration Enoxaparin Sodium 40 m
[2019-10-06 14:58] VITALS: BP 123/64; PULSE 79; RESP 16; TEMP 36.3; O2SAT 100
--- NOTE | 2019-10-06 16:16 | PM.IMPN ---
Progress Note: A&P Assessment and Plan (1) Closed intertrochanteric fracture of left hip: Qualifiers: Encounter type: initial encounter Fracture alignment: displaced Qualified Code(s): S72.142A - Displaced intertrochanteric fracture of left femur, initial encounter for closed fracture Code(s): S72.142A - Displaced intertrochanteric fracture of left femur, initial encounter for closed fracture Status: Acute Assessment and Plan: -----POD # [address] Sheridan. Imaging in the ER shows comminuted intertrochanteric fracture proximal left femur. Wound care, pain control, and DVT prophylaxis per Orthopedics. 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 Ortho recoomends 5mg BID of eliquis at discharge and to discharge to SNF. Awaiting SNF placement. (2) HTN (hypertension): Code(s): I10 - Essential (primary) hypertension Status: Chronic Assessment and Plan: ------Last bp 123/64. Continue propranolol (3) COPD (chronic obstructive pulmonary disease): Code(s): J44.9 - Chronic obstructive pulmonary disease, unspecified Status: Chronic Assessment and Plan: ------With continued tobacco abuse. Smoking cessation advised. Nebulized bronchodilators as needed. No evidence of respiratory distress today. No PNA suspected. Encouraged IS use. (4) Anxiety: Code(s): F41.9 - Anxiety disorder, unspecified Status: Chronic Assessment and Plan: -----Calm and cooperative today. PRN Ativan. (5) Alcoholic: Code(s): F10.20 - Alcohol dependence, uncomplicated Status: Chronic Assessment and Plan: -------No signs or symptoms of acute withdrawal today. CIWA no longer necessary. low on b12, this was replaced. Continue thiamin and folate (6) Hyponatremia: Code(s): E87.1 - Hypo-osmolality and hyponatremia Status: Acute Assessment and Plan: ------Likely secondary to alcohol use disorder and pain. 135 today. Additional Plan . Subjective Date/time seen: 10/06/19 16:16 Interval history: Pt is a 59 y/o male here for hip fracture. Patient was seen today while doing physical therapy and says he has pain when he walks per usual . He has no other complaints. Pt denies nausea, vomiting, fevers, chills, constipation, diarrhea, chest pain, sob, tremor, hallucinations, or abdominal pain. Exam Narrative: Exam Narrative: General: Well developed well nourished patient resting in bed in NAD HEENT: normocephalic Neck: supple Neuro: Alert and oriented x4. no tremor CV:RRR Resp: CTA Abd: Soft, non distended. No pain to palpation. Positive bowel sounds Extremities: Bruising to the left hip with flank brusing and penile involvement. Pain to palpation. Some mild bleed at the surgical site on the gauze. Pulses and sensory intact. Objective Data Vital Signs Vital Signs: Vital Signs - 24 hr 10/05/19 22:05 10/06/19 06:00 10/06/19 14:58 Temperature 98.4 F 98.3 F 97.4 F L Pulse Rate 66 65 79 Respiratory Rate 18 16 16 Blood Pressure 135/85 127/77 123/64 Pulse Oximetry 100 92 100 Intake/Output Intake/Output: Intake & Output 10/03/19 10/04/19 10/05/19 10/06/19 23:59 23:59 23:59 23:59 Intake Total 1999 1398 375 1941 Output Total 5588 319 7097 Balance 300 730 -60 1020 Meds/Results Medications: Active Medications Generic Name Dose Route Start Last Admin Trade Name Freq PRN Reason Stop Dose Admin Hydrocodone Bitart/Acetaminophen 1 tab 10/03/19 12:18 10/06/19 12:23 [place] 7.5-325 Mg PO 1 tab Q3H PRN Administration Pain Rated 4-6 Al Hydrox/Mg Hydrox/Simethicone 30 ml 10/03/19 12:18 Mylanta PO Q6H PRN Indigest
[2019-10-06 22:00] VITALS: BP 101/69; PULSE 65; RESP 16; TEMP 36.7; O2SAT 100
[2019-10-07 06:00] VITALS: BP 119/77; PULSE 71; RESP 16; TEMP 36.8; O2SAT 100
[2019-10-07 06:24] LABS: Hematocrit 33.1 % (42.0-52.0); Hemoglobin 10.8 g/dL (14.0-18.0)
[2019-10-07] MEDS: ENOXAPARIN 40 MG/0.4 ML SYRINGE SUB-Q (09:59)
[2019-10-07] MEDS: FAMOTIDINE 20 MG TABLET PO ×2 (09:59→21:39)
[2019-10-07] MEDS: DOCUSATE SODIUM 100 MG CAPSULE PO ×2 (09:59→18:43)
[2019-10-07] MEDS: CYANOCOBALAMIN 1,000 MCG TABLET 1000 MCG PO (09:59)
[2019-10-07] MEDS: FOLIC ACID 1 MG TABLET PO (10:00)
[2019-10-07] MEDS: GABAPENTIN 300 MG CAPSULE PO ×3 (10:00→18:44)
[2019-10-07] MEDS: NICOTINE (*PBKC) 21 MG PATCH 1 PATCH TRANSDERM (10:00)
[2019-10-07] MEDS: THIAMINE HCL 100 MG TABLET PO (10:00)
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
--- NOTE | 2019-10-07 11:17 | PM.IMPN ---
Progress Note: A&P Assessment and Plan (1) Closed intertrochanteric fracture of left hip: Qualifiers: Encounter type: initial encounter Fracture alignment: displaced Qualified Code(s): S72.142A - Displaced intertrochanteric fracture of left femur, initial encounter for closed fracture Code(s): S72.142A - Displaced intertrochanteric fracture of left femur, initial encounter for closed fracture Status: Acute Assessment and Plan: -----POD # [address] Sheridan. Imaging in the ER shows comminuted intertrochanteric fracture proximal left femur. Plan to go to the OR tomorrow for a washout. Wound care, pain control, and DVT prophylaxis per Orthopedics. 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 Ortho recoomends 5mg BID of eliquis at discharge and to discharge to SNF. Awaiting SNF placement. (2) HTN (hypertension): Code(s): I10 - Essential (primary) hypertension Status: Chronic Assessment and Plan: ------Last bp 119/77. Continue propranolol (3) COPD (chronic obstructive pulmonary disease): Code(s): J44.9 - Chronic obstructive pulmonary disease, unspecified Status: Chronic Assessment and Plan: ------With continued tobacco abuse. Smoking cessation advised. Nebulized bronchodilators as needed. No evidence of respiratory distress today. No PNA suspected. Encouraged IS use. (4) Anxiety: Code(s): F41.9 - Anxiety disorder, unspecified Status: Chronic Assessment and Plan: -----Calm and cooperative today. PRN Ativan. (5) Alcoholic: Code(s): F10.20 - Alcohol dependence, uncomplicated Status: Chronic Assessment and Plan: -------No signs or symptoms of acute withdrawal today. CIWA no longer necessary. low on b12, this was replaced. Continue thiamin and folate (6) Hyponatremia: Code(s): E87.1 - Hypo-osmolality and hyponatremia Status: Acute Assessment and Plan: ------Likely secondary to alcohol use disorder and pain. 135 today. Additional Plan . Subjective Date/time seen: 10/07/19 11:17 Interval history: Pt is a 59 y/o male here for hip fracture. Patient was seen today with at bedside and has no complaints. Minimal pain at rest but worse pain with movement. Pt denies nausea, vomiting, fevers, chills, constipation, diarrhea, chest pain, sob, tremor, hallucinations, or abdominal pain. Exam Narrative: Exam Narrative: General: Well developed well nourished patient resting in bed in NAD HEENT: normocephalic Neck: supple Neuro: Alert and oriented x4. no tremor CV:RRR Resp: CTA with occasional wheeze Abd: Soft, non distended. No pain to palpation. Positive bowel sounds Extremities: Extensive bruising to the left hip with flank brusing and penile involvement. Pain to palpation. Some mild bleeding at the surgical site on the gauze. Pulses and sensory intact. Objective Data Vital Signs Vital Signs: Vital Signs - 24 hr 10/06/19 14:58 10/06/19 22:00 10/07/19 06:00 Temperature 97.4 F L 98.0 F 98.2 F Pulse Rate 79 65 71 Respiratory Rate 16 16 16 Blood Pressure 123/64 101/69 119/77 Pulse Oximetry 100 100 100 Intake/Output Intake/Output: Intake & Output 10/04/19 10/05/19 10/06/19 10/07/19 23:59 23:59 23:59 23:59 Intake Total 3948 523 3409 470 Output Total 800 1000 250 900 Balance 730 -60 1480 -430 Meds/Results Medications: Active Medications Generic Name Dose Route Start Last Admin Trade Name Freq PRN Reason Stop Dose Admin Hydrocodone Bitart/Acetaminophen 1 tab 10/03/19 12:18 10/06/19 18:01 [place] 7.5-325 Mg PO 1 tab Q3H PRN Administration Pain Rated 4-6 Al Hydrox/Mg Hydrox/Simet
--- NOTE | 2019-10-07 12:05 | PCNWS ---
Weekly nutritional screen. Patient is tolerating current diet with adequate intake. No weight loss reported. No nutritional needs at this time.
[2019-10-07] MEDS: ceFAZolin 2 GM/D5W 50 ML 2 GM/50 ML BAG IVPB ×2 (12:42→21:38)
[2019-10-07 14:35] VITALS: BP 123/67; PULSE 63; RESP 18; TEMP 36.8; O2SAT 100
[2019-10-07 22:00] VITALS: BP 130/61; PULSE 79; RESP 20; TEMP 37.1; O2SAT 100
[2019-10-08] MEDS: ceFAZolin 2 GM/D5W 50 ML 2 GM/50 ML BAG IVPB ×3 (04:44→22:27)
[2019-10-08 06:00] VITALS: BP 108/72; PULSE 70; RESP 20; TEMP 36.9; O2SAT 98
[2019-10-08 06:35] LABS: Hematocrit 33.2 % (42.0-52.0); Hemoglobin 10.8 g/dL (14.0-18.0); Mean Corpuscular HGB Conc 32.5 g/dl (32-36); Mean Corpuscular Hemoglobin 33.8 pg (26-34); Mean Corpuscular Volume 103.8 fl (80-100); Mean Platelet Volume 10.6 fl (7.4-10.4); Platelet Count Result 225 k/mm3 (150-375); Red Cell Distribution Width 13.3 % (11.5-14.5); White Blood Count 5.5 K/mm3 (4.5-10.0)
[2019-10-08 06:43] LABS: Prothrombin Time 12.7 Seconds (11.1-14.7)
[2019-10-08 06:53] LABS: Blood Urea Nitrogen 7 mg/dL (9-20); Calcium 8.7 mg/dL (8.4-10.2); Carbon Dioxide 28 mmol/L (22-30); Chloride 103 mmol/L (98-107); Estimated CRCL calculation 91 ml/min; Estimated Glomerular Filt Rate > 60; Glucose 95 mg/dL (75-110); Sodium 134 mmol/L (137-145)
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
--- NOTE | 2019-10-08 08:17 | PM.OP ---
Procedure Note - Brief Procedure Note - Brief Date of procedure: 10/08/19 Pre-op diagnosis: intertrochanteric hip fracture left Wound drainage left hip status post ORIF with IT nail Post-op diagnosis: same Procedure performed: The patient was brought to the preop holding area and well marking the site was noted that his drainage had virtually stopped so the decision was made to cancel the case. He was returned to the floor. Surgeon: Sánchez Sheridan MD Disposition: floor
--- NOTE | 2019-10-08 08:18 | PM.PNORT ---
Progress Note: A&P Assessment and Plan (1) Closed intertrochanteric fracture of left hip: Qualifiers: Encounter type: initial encounter Fracture alignment: displaced Qualified Code(s): S72.142A - Displaced intertrochanteric fracture of left femur, initial encounter for closed fracture Code(s): S72.142A - Displaced intertrochanteric fracture of left femur, initial encounter for closed fracture Status: Acute Assessment and Plan: As noted in the operative note, the drainage has diminished to such an extent that the surgery was canceled. Plan on doing Q shift dressing changes and instead of putting him back on Lovenox, will use enteric-coated aspirin 650 mg daily for DVT prophylaxis. There was a concern that if he goes home with home health that even on one of the other anticoagulants, he may not get it because of prohibitive cost. The think the aspirin is a reasonable solution for this. Following. Time Spent With Patient Time with patient: 15 - 25 minutes Subjective Subjective Date/Time Seen: 10/08/19 08:18 Post Op day: 5 (ORIF left IT hip fracture) Review of Systems Constitutional: Constitutional: Denies chills and Denies fever(s) Eyes: Eyes: Reports no additional eye complaints ENT: Reports system reviewed and no additional complaints, except as documented Cardiovascular: Cardiovascular: Denies chest pain and Denies dyspnea on exertion Respiratory: Respiratory: Reports no additional respiratory complaints and Denies dyspnea on exertion Gastrointestinal: Gastrointestinal: Denies abdominal pain and Denies bloating Exam Const: General: cooperative, no acute distress and alert Nutritional Appearance: thin Orientation/consciousness: patient oriented x3 Limitations: no limitations HENMT: Head: normal to inspection Ears: hearing grossly normal bilaterally Face and sinus: face symmetric Mouth: Yes moist mucous membranes Teeth and gingiva: poor dentition Eyes: Alignment and Position: alignment normal and position normal Sclera: sclerae normal Neck: Neck: normal visual inspection and nontender Chest: Chest palpation & inspection: normal inspection of the chest Resp: Effort & Inspection: normal respiratory effort and able to speak in complete sentences GI: Inspection: other Skin: General skin exam: normal color Rashes: no rashes Neuro: General: patient oriented x3 Cognition (Neuro): normal cognition Speech: normal speech Gait exam (Neuro): Other gait observations present Motor exam (neuro): 5/5 motor strength present throughout Sensory Exam: normal sensation Extrem: General: normal to inspection and other Other: Exam of the left hip wounds today reveals that the drainage has virtually stopped at the proximal wound and is non-existent the two distal wounds. Grossly motor and sensory function left lower extremity is unremarkable. Calves are nontender bilaterally. Psych: Appearance: grossly normal Mental Status: mental status grossly normal Objective Data Vital Signs Vital Signs: Vital Signs - 24 hr 10/07/19 14:35 10/07/19 22:00 10/08/19 06:00 Temperature 98.2 F 98.7 F 98.4 F Pulse Rate 63 79 70 Respiratory Rate 18 20 20 Blood Pressure 123/67 130/61 108/72 Pulse Oximetry 100 100 98 Intake/Output Intake/Output: Intake & Output 10/05/19 10/06/19 10/07/19 10/08/19 23:59 23:59 23:59 23:59 Intake Total 940 / 940 1730 / 1730 2019 / 2019 450 / 450 Output Total 1000 / 1000 250 / 250 2100 / 2100 900 / 900 Balance -60 / -60 1480 / 1480 -80 / -80 -450 / -450 Meds/Results Medications: Active Medications Generic Name Dose Route Start Last Admin Trade Name Freq PRN Reason Stop Dose Admin Hydrocodone Bitart/Acetaminophen 1 tab 10/03/19 12:18 10/08/19 04:20 [place] 7.5-325 Mg PO 1 tab Q3H PRN Administration Pain Rated 4-6 Al Hydrox/Mg Hydrox/Simethicone 30 ml 10/03/19 12:18 Mylanta PO Q6H PRN Indigestion Chlordiazepoxide HCl 25 mg 0
--- NOTE | 2019-10-08 08:19 | PCPTNOTE ---
Patient is unavailable this AM due procedure taken place with MD for incision site. Will return to plan of care that this date.
[2019-10-08] MEDS: FAMOTIDINE 20 MG TABLET PO ×2 (10:26→22:26)
[2019-10-08] MEDS: NICOTINE (*PBKC) 21 MG PATCH 1 PATCH TRANSDERM (10:26)
[2019-10-08] MEDS: GABAPENTIN 300 MG CAPSULE PO ×3 (10:26→18:01)
[2019-10-08] MEDS: CYANOCOBALAMIN 1,000 MCG TABLET 1000 MCG PO (10:27)
[2019-10-08] MEDS: FOLIC ACID 1 MG TABLET PO (10:27)
--- NOTE | 2019-10-08 12:06 | PM.IMPN ---
Progress Note: A&P Assessment and Plan (1) Closed intertrochanteric fracture of left hip: Qualifiers: Encounter type: initial encounter Fracture alignment: displaced Qualified Code(s): S72.142A - Displaced intertrochanteric fracture of left femur, initial encounter for closed fracture Code(s): S72.142A - Displaced intertrochanteric fracture of left femur, initial encounter for closed fracture Status: Acute Assessment and Plan: -----POD # [address] Sheridan. Imaging in the ER shows comminuted intertrochanteric fracture proximal left femur. Plan to go to the OR tomorrow for a washout. Wound care, pain control, and DVT prophylaxis per Orthopedics. 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 Ortho recommends 5mg BID of eliquis at discharge and to discharge to SNF. If SNF not obtainable, will go home on 650 aspirin daily. (2) HTN (hypertension): Code(s): I10 - Essential (primary) hypertension Status: Chronic Assessment and Plan: ------Last bp 108/72 Continue propranolol (3) COPD (chronic obstructive pulmonary disease): Code(s): J44.9 - Chronic obstructive pulmonary disease, unspecified Status: Chronic Assessment and Plan: ------With continued tobacco abuse. Smoking cessation advised. Nebulized bronchodilators as needed. No evidence of respiratory distress today. No PNA suspected. Encouraged IS use. (4) Anxiety: Code(s): F41.9 - Anxiety disorder, unspecified Status: Chronic Assessment and Plan: -----Calm and cooperative today. PRN Ativan. (5) Alcoholic: Code(s): F10.20 - Alcohol dependence, uncomplicated Status: Chronic Assessment and Plan: -------No signs or symptoms of acute withdrawal today. CIWA no longer necessary. low on b12, this was replaced. Continue thiamin and folate (6) Hyponatremia: Code(s): E87.1 - Hypo-osmolality and hyponatremia Status: Acute Assessment and Plan: ------Likely secondary to alcohol use disorder and pain. 134 today. Additional Plan . Subjective Date/time seen: 10/08/19 12:06 Interval history: Pt is a 59 y/o male here for hip fracture. Patient was seen today with at bedside and has no complaints. Minimal pain at rest but worse pain with movement. He says the bleeding and discharge has improved. Pt denies nausea, vomiting, fevers, chills, constipation, diarrhea, chest pain, sob, tremor, hallucinations, or abdominal pain. Exam Narrative: Exam Narrative: General: Well developed well nourished patient resting in bed in NAD HEENT: normocephalic Neck: supple Neuro: Alert and oriented x4. no tremor CV:RRR Resp: CTA with occasional wheeze Abd: Soft, non distended. No pain to palpation. Positive bowel sounds Extremities: Extensive bruising to the left hip with flank brusing and penile involvement. Pain to palpation. no bleeding at the surgical site on the gauze today. Pulses and sensory intact. Objective Data Vital Signs Vital Signs: Vital Signs - 24 hr 10/07/19 14:35 10/07/19 22:00 10/08/19 06:00 Temperature 98.2 F 98.7 F 98.4 F Pulse Rate 63 79 70 Respiratory Rate 18 20 20 Blood Pressure 123/67 130/61 108/72 Pulse Oximetry 100 100 98 Intake/Output Intake/Output: Intake & Output 10/05/19 10/06/19 10/07/19 10/08/19 23:59 23:59 23:59 23:59 Intake Total 940 1730 2020 450 Output Total 7397 501 1935 900 Balance -60 1480 -80 -450 Meds/Results Medications: Active Medications Generic Name Dose Route Start Last Admin Trade Name Freq PRN Reason Stop Dose Admin Hydrocodone Bitart/Acetaminophen 1 tab 10/03/19 12:18 10/08/19 10:42 [place] 7.5-325 Mg PO
[2019-10-08] MEDS: THIAMINE HCL 100 MG TABLET PO (13:10)
[2019-10-08] MEDS: ASPIRIN 325 MG ENTERIC TABLET 650 MG PO ×2 (13:11→22:25)
[2019-10-08 14:47] VITALS: PULSE 82; RESP 18; O2SAT 96
[2019-10-08 14:48] VITALS: BP 102/69; PULSE 61; RESP 20; TEMP 36.7; O2SAT 94
[2019-10-08 22:00] VITALS: BP 106/58; PULSE 86; RESP 16; TEMP 36.4; O2SAT 100
[2019-10-08 22:25] VITALS: PULSE 75
[2019-10-08] MEDS: PROPRANOLOL HCL 40 MG TABLET PO (22:25)
--- NOTE | 2019-10-09 03:44 | PC.NURSE ---
Daylight Savings Time For Daylight Savings Time Ending in the Fall - Clocks are moved back. For Daylight Savings Time Beginning in the Spring - Clocks are moved ahead. For [facility], the time of change occurs at 0200 hrs. Time is taken from the outside food server. This entry on the patient's chart recognizes the change in time reflected during documentation. Example: 2 entries for vital signs may be charted for 0200 hrs.
[2019-10-09] MEDS: ceFAZolin 2 GM/D5W 50 ML 2 GM/50 ML BAG IVPB ×3 (05:24→21:37)
[2019-10-09 06:00] VITALS: BP 136/73; PULSE 96; RESP 16; TEMP 36.8; O2SAT 100
[2019-10-09 06:44] LABS: Hemoglobin 10.6 g/dL (14.0-18.0)
[2019-10-09 09:11] VITALS: PULSE 60
[2019-10-09] MEDS: CYANOCOBALAMIN 1,000 MCG TABLET 1000 MCG PO (09:11)
[2019-10-09] MEDS: GABAPENTIN 300 MG CAPSULE PO ×3 (09:11→17:32)
[2019-10-09] MEDS: DOCUSATE SODIUM 100 MG CAPSULE PO ×2 (09:11→17:33)
[2019-10-09] MEDS: THIAMINE HCL 100 MG TABLET PO (09:11)
[2019-10-09] MEDS: NICOTINE (*PBKC) 21 MG PATCH 1 PATCH TRANSDERM (09:11)
[2019-10-09] MEDS: PROPRANOLOL HCL 40 MG TABLET PO ×2 (09:11→21:34)
[2019-10-09] MEDS: FOLIC ACID 1 MG TABLET PO (09:11)
[2019-10-09] MEDS: FAMOTIDINE 20 MG TABLET PO ×2 (09:11→21:34)
[2019-10-09] MEDS: ASPIRIN 325 MG ENTERIC TABLET 650 MG PO ×2 (09:11→19:06)
--- NOTE | 2019-10-09 09:46 | PM.IMPN ---
Progress Note: A&P Assessment and Plan (1) Closed intertrochanteric fracture of left hip: Qualifiers: Encounter type: initial encounter Fracture alignment: displaced Qualified Code(s): S72.142A - Displaced intertrochanteric fracture of left femur, initial encounter for closed fracture Code(s): S72.142A - Displaced intertrochanteric fracture of left femur, initial encounter for closed fracture Status: Acute Assessment and Plan: -----POD # [address] Sheridan. Imaging in the ER shows comminuted intertrochanteric fracture proximal left femur. Wound care, pain control, and DVT prophylaxis per Orthopedics. 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 Ortho recommends 5mg BID of eliquis at discharge and to discharge to SNF. If SNF not obtainable, will go home on 650 aspirin daily. (2) HTN (hypertension): Code(s): I10 - Essential (primary) hypertension Status: Chronic Assessment and Plan: ------Last bp 136/73. Continue propranolol (3) COPD (chronic obstructive pulmonary disease): Code(s): J44.9 - Chronic obstructive pulmonary disease, unspecified Status: Chronic Assessment and Plan: ------With continued tobacco abuse. Smoking cessation advised. Nebulized bronchodilators as needed. No evidence of respiratory distress today. No PNA suspected. Encouraged IS use. (4) Anxiety: Code(s): F41.9 - Anxiety disorder, unspecified Status: Chronic Assessment and Plan: -----Calm and cooperative today. PRN Ativan. (5) Alcoholic: Code(s): F10.20 - Alcohol dependence, uncomplicated Status: Chronic Assessment and Plan: -------No signs or symptoms of acute withdrawal today. CIWA no longer necessary. low on b12, this was replaced. Continue thiamin and folate (6) Hyponatremia: Code(s): E87.1 - Hypo-osmolality and hyponatremia Status: Acute Assessment and Plan: ------Likely secondary to alcohol use disorder and pain. Additional Plan . Subjective Date/time seen: 10/09/19 09:46 Interval history: Pt is a 59 y/o male here for hip fracture. Patient was seen today and says his hip has not been draining much. He has no current issues. Minimal pain at rest but pain with movement. Pt denies nausea, vomiting, fevers, chills, constipation, diarrhea, chest pain, sob, tremor, hallucinations, or abdominal pain. Exam Narrative: Exam Narrative: General: Well developed well nourished patient resting in bed in NAD HEENT: normocephalic Neck: supple Neuro: Alert and oriented x4. no tremor CV:RRR Resp: CTA with occasional wheeze Abd: Soft, non distended. No pain to palpation. Positive bowel sounds Extremities: No discharge to the incision site. Bruising improving. Pulses and sensory intact. Objective Data Vital Signs Vital Signs: Vital Signs - 24 hr 10/08/19 14:47 10/08/19 14:48 10/08/19 22:00 Temperature 98.1 F 97.6 F Pulse Rate 82 61 86 Respiratory Rate 18 20 16 Blood Pressure 102/69 106/58 L Pulse Oximetry 96 94 100 10/08/19 22:25 10/09/19 06:00 10/09/19 09:11 Temperature 98.2 F Pulse Rate 75 96 60 Respiratory Rate 16 Blood Pressure 136/73 Pulse Oximetry 100 Intake/Output Intake/Output: Intake & Output 10/06/19 10/07/19 10/08/19 10/10/19 23:59 23:59 23:59 00:59 Intake Total 1730 2020 890 500 Output Total 250 2100 900 800 Balance 1480 -80 -10 -300 Meds/Results Medications: Active Medications Generic Name Dose Route Start Last Admin Trade Name Freq PRN Reason Stop Dose Admin Hydrocodone Bitart/Acetaminophen 1 tab 10/03/19 12:18 10/08/19 18:04 [place] 7.5-325 Mg PO 1 tab Q3H PRN Admini
[2019-10-09 10:42] VITALS: O2SAT 98
[2019-10-09 21:09] VITALS: PULSE 63; O2SAT 99
[2019-10-09 21:34] VITALS: PULSE 78
[2019-10-09 22:00] VITALS: BP 100/54; PULSE 52; RESP 16; TEMP 36.6; O2SAT 99
[2019-10-10 06:00] VITALS: BP 108/62; PULSE 50; RESP 16; TEMP 36.6; O2SAT 99
[2019-10-10] MEDS: ceFAZolin 2 GM/D5W 50 ML 2 GM/50 ML BAG IVPB (06:14)
[2019-10-10] MEDS: FOLIC ACID 1 MG TABLET PO (08:23)
[2019-10-10] MEDS: DOCUSATE SODIUM 100 MG CAPSULE PO (08:23)
[2019-10-10] MEDS: ASPIRIN 325 MG ENTERIC TABLET 650 MG PO (08:23)
[2019-10-10] MEDS: GABAPENTIN 300 MG CAPSULE PO ×2 (08:23→15:50)
[2019-10-10] MEDS: CYANOCOBALAMIN 1,000 MCG TABLET 1000 MCG PO (08:24)
[2019-10-10] MEDS: FAMOTIDINE 20 MG TABLET PO (08:25)
[2019-10-10] MEDS: NICOTINE (*PBKC) 21 MG PATCH 1 PATCH TRANSDERM (08:27)
[2019-10-10 08:28] VITALS: PULSE 62
[2019-10-10] MEDS: PROPRANOLOL HCL 40 MG TABLET PO (08:28)
[2019-10-10] MEDS: THIAMINE HCL 100 MG TABLET PO (08:31)
--- NOTE | 2019-10-10 11:28 | PM.PNORT ---
Progress Note: A&P Assessment and Plan (1) Closed intertrochanteric fracture of left hip: Qualifiers: Encounter type: initial encounter Fracture alignment: displaced Qualified Code(s): S72.142A - Displaced intertrochanteric fracture of left femur, initial encounter for closed fracture Code(s): S72.142A - Displaced intertrochanteric fracture of left femur, initial encounter for closed fracture Status: Acute Assessment and Plan: Continue with PT. Plan on keeping him on Duricef for a total of two more weeks. He is on echo train 325 mg b.i.d. for DVT prophylaxis. He will need to have his jewell removed in one week and that could be done at the facility. Plan on keeping him at a toe-touch weight-bearing status left lower extremity for eight weeks minimum. Following Subjective Subjective Date/Time Seen: 10/10/19 11:28 Post Op day: Postop day seven Principal diagnosis: ORIF left IT hip fracture Review of Systems Constitutional: Constitutional: Denies chills and Denies fever(s) Eyes: Eyes: Reports no additional eye complaints ENT: Reports system reviewed and no additional complaints, except as documented Cardiovascular: Cardiovascular: Denies chest pain and Denies dyspnea on exertion Respiratory: Respiratory: Reports no additional respiratory complaints and Denies dyspnea on exertion Gastrointestinal: Gastrointestinal: Denies abdominal pain and Denies bloating Exam Const: General: cooperative, no acute distress and alert Nutritional Appearance: other Orientation/consciousness: patient oriented x3 Limitations: no limitations HENMT: Head: normal to inspection Ears: hearing grossly normal bilaterally Face and sinus: face symmetric Mouth: Yes moist mucous membranes Teeth and gingiva: poor dentition Eyes: Alignment and Position: alignment normal and position normal Sclera: sclerae normal Neck: Neck: normal visual inspection and nontender Chest: Chest palpation & inspection: normal inspection of the chest Resp: Effort & Inspection: normal respiratory effort and able to speak in complete sentences GI: Inspection: other (Nontender, nondistended ) Skin: General skin exam: normal color Rashes: no rashes Neuro: General: patient oriented x3 Cognition (Neuro): normal cognition Speech: normal speech Gait exam (Neuro): Other gait observations present Sensory Exam: normal sensation Extrem: General: normal to inspection and other Other: Exam of the left hip shows healing incisions. All three wounds are dry. Moderate amount of bruising as expected about the left hip and thigh. Grossly, motor and sensory function to left lower extremity is intact. Psych: Appearance: grossly normal Mental Status: mental status grossly normal Objective Data Vital Signs Vital Signs: Vital Signs - 24 hr 10/09/19 21:09 10/09/19 21:34 10/09/19 22:00 Temperature 97.8 F Pulse Rate 63 78 52 L Respiratory Rate 16 Blood Pressure 100/54 L Pulse Oximetry 99 99 10/10/19 06:00 10/10/19 08:28 Temperature 97.8 F Pulse Rate 50 L 62 Respiratory Rate 16 Blood Pressure 108/62 Pulse Oximetry 99 Intake/Output Intake/Output: Intake & Output 10/07/19 10/08/19 10/09/19 10/10/19 22:59 22:59 23:59 23:59 Intake Total 840 / 840 Output Total 250 / 250 Balance 590 / 590 Meds/Results Medications: Active Medications Generic Name Dose Route Start Last Admin Trade Name Freq PRN Reason Stop Dose Admin Hydrocodone Bitart/Acetaminophen 1 tab 10/03/19 12:18 10/08/19 18:04 [place] 7.5-325 Mg PO 1 tab Q3H PRN Administration Pain Rated 4-6 Hydrocodone Bitart/Acetaminophen 1 tab 10/08/19 09:21 10/10/19 08:28 [place] 5-325 Mg PO 1 tab Q3H PRN Administration Pain Rated 4-6 Al Hydrox/Mg Hydrox/Simethicone 30 ml 10/03/19 12:18 [place] PO Q6H PRN Indigestion Aspirin 650 mg 10/08/19 09:21 10/10/19 08:23 Aspirin Ec PO 650 mg BID [facility]
--- NOTE | 2019-10-10 12:56 | PM.DS ---
DS: Diagnosis Admitting Diagnosis Admitting Diagnosis: Displaced intertrochanteric fracture of left femur, initial encounter for closed fracture Discharge Diagnosis (1) Closed intertrochanteric fracture of left hip: Qualifiers: Encounter type: initial encounter Fracture alignment: displaced Qualified Code(s): S72.142A - Displaced intertrochanteric fracture of left femur, initial encounter for closed fracture Code(s): S72.142A - Displaced intertrochanteric fracture of left femur, initial encounter for closed fracture Status: Acute (2) HTN (hypertension): Code(s): I10 - Essential (primary) hypertension Status: Chronic (3) COPD (chronic obstructive pulmonary disease): Code(s): J44.9 - Chronic obstructive pulmonary disease, unspecified Status: Chronic (4) Anxiety: Code(s): F41.9 - Anxiety disorder, unspecified Status: Chronic (5) Alcoholic: Code(s): F10.20 - Alcohol dependence, uncomplicated Status: Chronic (6) Hyponatremia: Code(s): E87.1 - Hypo-osmolality and hyponatremia Status: Acute DS: Summary Hospital Course Reason for hospitalization: Hip fracture Hospital Course: Patient is a 59-year-old male who presented emergency room with left hip pain after a fall. Temperature 97.8?, pulse 82, respiratory rate 18, blood pressure 115/69, pulse ox 100 on room air. White blood cell count normal. Sodium 130, potassium 4.0, chloride 96, carbon dioxide 21, BUN 6, creatinine 0.6, glucose 99. Left hip showed a comminuted intertrochanteric fracture of proximal left femur. He was seen by Dr. dickson and underwent a ORIF left IT hip fracture on 10/03/19 with no immediate complications. After sx he was having a good amount of bleeding to the area and that was monitored. Plan was to take him back to the OR to clean the area out but that day the area had stopped bleeding and that was cancelled. he was observed a few days after that to ensure the bleeding did not restart and he had no issues. His hgb remained stable. He did well with PT and was discharged to a nursing facility. he was educated on the worrisome signs and symptoms to come back to the ER for and was discharged in stable condition. Due to his noncomplience and lack of payment methods, aspirin was used as DVT prophylax. Status at Discharge Functional status at discharge: uses cane/walker Overall status at discharge: patient is progressing back to baseline Time Spent with Patient Time attestation: Total time spent providing and/or coordinating discharge services:38 min Exam Narrative: Exam Narrative: General: Well developed well nourished patient resting in bed in NAD HEENT: normocephalic Neck: supple Neuro: Alert and oriented x4. no tremor CV:RRR Resp: CTA with occasional wheeze Abd: Soft, non distended. No pain to palpation. Positive bowel sounds Extremities: No discharge to the incision site. Bruising improving. Pulses and sensory intact. Discharge Plan Discharge Attending physician on discharge: Ulices De Santiago Consulting providers: ; Sánchez Dickson ; Mary Caputo ; Danelle Gomes ; Sherman Willard V. ; Dae Lam Discharging Clinician: Danelle Gomes [facility] Dis[facility] Activity: follow weight bearing status Diet: regular Discharge Instructions: -follow up with your primary care doctor in 1-2 weeks -Limit alcohol consumption as much as you can. --You have been prescribed narcotic pain medication. This pain medication can make you constipated. Utilize [id number] medications to relieve your constipation symptoms. Take only as directed as these medications can be addictive. Do not drive on these medications. -You will take aspirin two times a day for 6 weeks then go back to your daily aspirin after that. -Worrisome signs and symptoms to come back to the ER for: fevers 100.5 or greater, chest pain, shortness of breath, progress
[2019-10-10 14:24] VITALS: BP 116/79; PULSE 70; RESP 18; TEMP 36.4; O2SAT 99
== END 2019-10-10 16:05 | DRG 308 ==
LOC: ANHED 11:01 → ANH3MEDSUR 11:31
PROVIDERS: Nurse Practitioner; Orthopaedic Surgery; Physician Assistant; Admitting Provider Family Medicine; Emergency Provider Emergency Medicine; Visit Provider Internal Medicine
PROC: 0QS704Z Reposition Left Upper Femur with Internal Fixation Device, Open Approach (ICD-10-PCS; CPT 27245; principal; 2019-10-03 09:30)
DX: S72.142A Displaced intertrochanteric fracture of left femur, initial encounter for closed fracture (principal); W20.0XXA Struck by falling object in cave-in, initial encounter; F41.9 Anxiety disorder, unspecified; J44.9 Chronic obstructive pulmonary disease, unspecified; I10 Essential (primary) hypertension; G62.9 Polyneuropathy, unspecified; F17.210 Nicotine dependence, cigarettes, uncomplicated; F10.20 Alcohol dependence, uncomplicated; E87.1 Hypo-osmolality and hyponatremia; Z86.718 Personal history of other venous thrombosis and embolism
CPT/HCPCS: 36415; 71045; 73502; 73521; 80048; 82607; 82746; 83735; 84439; 84443; 84480; 85014; 85018; 85025; 85027; 85055; 85610; 85730; 93005; 96374; 96375; 97110; 97116; 97161; 97165; 97530; 97535; 99285; A9270; C1713; J0131; J0690; J1100; J1170; J1650; J1885; J2250; J2270; J2370; J2405; J2704; J3010; J3420; J7030; J7120

== ENCOUNTER 2020-02-12 12:44 | Inpatient (IN) | payer MEDICAID, SELFPAY ==
--- NOTE | ~2020-02-12 | US_ITS ---
EXAMINATION:US venous doppler LE LT INDICATION:Left lower extremity pain TECHNIQUE: Multiple grayscale, color flow and Doppler images of the left lower extremity deep venous systems were obtained and reviewed. COMPARISON:No prior studies for comparison. FINDINGS: There is extensive deep venous thrombosis involving the femoral veins, popliteal, posterior tibial, peroneal as well as superficial thrombosis in the greater saphenous vein. IMPRESSION: 1: Extensive deep venous thrombosis in the left lower extremity. Dr. Nicole discussed with Dr. Quan Joseph PA-C at 02/12/2020 14:36 CDT. Reviewed, dictated and finalized at location A.
--- NOTE | ~2020-02-12 | XR_ITS ---
EXAMINATION: XR chest 1V portable DATE: 02/12/2020 13:28 INDICATION: Cough. TECHNIQUE: A single frontal view of the chest was obtained on 2 radiographs. COMPARISON: Chest single view 10/01/2019 FINDINGS: Calcified right lung nodules are consistent with old granulomatous disease. No pleural effu miryam or pneumothorax. The heart size is normal. There are multiple old healed bilateral rib fractures . IMPRESSION: 1. No acute cardiopulmonary disease. Reviewed, dictated and finalized at location A.
--- NOTE | ~2020-02-12 | XR_ITS ---
XR ankle LT min 3V 02/12/2020 14:23 Indication: Left ankle pain Procedure: 4 views left ankle Comparison: No prior studies for comparison. Findings: No fracture, subluxation or dislocation. Ankle mortise intact. Talar dome within normal key its. No significant soft tissue abnormality. No radiopaque foreign body. Impression: 1: No acute bone or joint abnormality. Reviewed, dictated and finalized at location A. Impression: 1: No acute bone or joint abnormality.
--- NOTE | ~2020-02-12 | CT_ITS ---
EXAMINATION: CTA chest PE protocol DATE: 02/12/2020 13:58 INDICATION: Mid chest pain. TECHNIQUE: Computed tomography angiography (CTA) of the chest was performed with 100 mL Omnipaque-350 intravenous contrast timed to evaluate the pulmonary arteries. Coronal maximum intensity projection 3D-reconstructions were created by the technologist. Automated exposure control and iterative reconst ruction technique were employed. The dose-length product was 233.24 mGy-cm. COMPARISON: None. FINDINGS: There is mild emphysema. There are mild groundglass opacities in right upper lobe. There ar e subsegmental airspace opacities in the anterobasal segment right lower lobe. There is mild scarring in left upper lobe. There is mild atelectasis bilaterally. Calcified bilateral lung nodules and calc ified bilateral hilar lymph nodes are consistent with old granulomatous disease. There is a 5 mm nodu le in left lower lobe, likely benign. No pleural effusion. The heart size is normal. There are wilkes ry artery calcifications. No pericardial effusion. There are pulmonary emboli in right upper lobe and right lower lobe. There are 2.2 cm and 1.8 cm masses in the liver. There is severe stenosis of the a bdominal aorta. Partially visualized is a compression fracture of L2. There are mild compression frac tures of T1 and T2 with less than 1/5 loss of height. IMPRESSION: 1. Acute pulmonary emboli in right upper lobe and right lower lobe with small infarcts. I discussed t his case with Quan Joseph on 02/12/20 at 14:16. 2. Liver masses, which may be benign or malignant. Abdomen MRI without and with contrast is recommend ed. 3. Severe stenosis of abdominal aorta. 4. Age-indeterminate compression fractures of T1, T2, and L2. Reviewed, dictated and finalized at location A. IMPRESSION: 1. Acute pulmonary emboli in right upper lobe and right lower lobe with small i nfarcts. I discussed this case with Quan Joseph on 02/12/20 at 14:16. 2. Liver masses, which may be benign or malignant. Abdomen MRI without and with contrast is recommended. 3. Severe stenosis of abdominal aorta. 4. Age-indeterminate compression fractures of T1, T2, and L2.
--- NOTE | ~2020-02-12 | MR_ITS ---
EXAMINATION: MR abdomen wo/w con DATE: 02/13/2020 08:46 INDICATION: Liver masses. TECHNIQUE: Magnetic resonance imaging (MRI) of the brain and brainstem was performed without and with 12 mL MultiHance intravenous contrast. Sequences included coronal T2-weighted FS FSE, coronal and ax ial FS FIESTA, axial T2-weighted FSE, coronal LAVA-flex, axial STIR FSE, axial DWI, axial dual-echo T 1-weighted FSPGR, and axial LAVA. Postcontrast sequences included coronal LAVA-flex and a time course of axial LAVA. COMPARISON: Chest CT 02/12/2020 FINDINGS: The liver demonstrates area of focal steatosis at the hilum correlating with the CT abnorma lities. The gallbladder, spleen, pancreas, and adrenal glands are normal. There are cysts in the kidn eys measuring up to 8 mm on the right. There is severe stenosis of the abdominal aorta. There are no dilated loops of bowel. There are no pathologically enlarged lymph nodes. There is no free intraperit connors fluid. There is a compression fracture of L2 with bone marrow edema, likely acute or subacute. There is instrumentation of left femur. IMPRESSION: 1. Focal steatosis in the liver correlating with the CT abnormalities. No evidence of malignancy. 2. Severe stenosis of abdominal aorta. 3. Acute versus subacute L2 compression fracture. Reviewed, dictated and finalized at location A. IMPRESSION: 1. Focal steatosis in the liver correlating with the CT abnormalities. No evide nce of malignancy. 2. Severe stenosis of abdominal aorta. 3. Acute versus subacute L2 compression fracture.
--- NOTE | 2020-02-12 13:15 | ED.LOWEXIN ---
HPI - Extremity Injury (Lower) General Chief Complaint: Extremity Injury, Lower <GRACE D eJesus Last Filed: 02/12/20 16:24> Stated Complaint: left leg is swollen <GRACE De Jesus Last Filed: 02/12/20 16:24> Time Seen by Provider: 02/12/20 12:52 <GRACE De Jesus Last Filed: 02/12/20 16:24> Source: patient <GRACE De Jesus Last Filed: 02/12/20 16:24> Mode of arrival: ambulatory <GRACE De Jesus Last Filed: 02/12/20 16:24> Limitations: no limitations <GRACE De Jesus Last Filed: 02/12/20 16:24> History of Present Illness HPI Narrative: Patient is a 59-year-old individual that presents with right ankle pain and leg swelling that was noticed over the last several days notes that now the swelling around the ankle is extending up into the upper leg patient denies injury or trauma or similar occurrence. Patient notes history of clotting. Patient notes yesterday had an episode of mild left sharp chest pain that was self-limited and lasted a short period and resolved. Patient with history of tobacco abuse patient has not been seen for this complaint. . Patient presents per private vehicle <GRACE De Jesus Last Filed: 02/12/20 16:24> Related Data Home Medications: Home Medications Medication Instructions Recorded Confirmed folic acid 1 mg PO DAILY 10/01/19 02/12/20 gabapentin 300 mg PO TID 10/01/19 02/12/20 propranolol 40 mg PO Q12H 10/01/19 02/12/20 hydrocodone-acetaminophen 1 tablet PO TID PRN 02/12/20 02/12/20 silver sulfadiazine 1 applic TOPICAL BID 02/12/20 02/12/20 <GRACE De Jesus Last Filed: 02/12/20 16:24> Allergies/Adverse Reactions: Allergies Allergy/AdvReac Type Severity Reaction Status Date / Time bacitracin Allergy Intermediate Rash Verified 02/12/20 12:45 neomycin Allergy Intermediate Rash Verified 02/12/20 12:45 polymyxin B Allergy Intermediate Rash Verified 02/12/20 12:45 clavulanic acid Allergy Mild Rash Verified 02/12/20 12:45 <Quan Joseph PA-C - Last Filed: 02/12/20 16:24> Review of Systems Review of Systems: All systems reviewed & are unremarkable except as noted in HPI and below <Quan Joseph PA-C - Last Filed: 02/12/20 16:24> [facility] Past Medical History Medical History: Medical History (Updated 02/13/20 @ 00:28 by Nancy Caballero PA-C) Alcohol abuse Anxiety Arthritis Chronic obstructive pulmonary disease Deep venous thrombosis Of the left upper extremity with subsequent amputation of the left 4th finger at the DIP. Essential hypertension Pancreatitis Peripheral neuropathy Rheumatic fever Seizure Last seizure was about 20 years ago. He was never put on any seizure medicine. Thought to be related to alcohol withdrawal. Tobacco dependence <Quan Joseph PA-C - Last Filed: 02/12/20 16:24> Surgical History Surgical History: Surgical History (Updated 02/13/20 @ 00:14 by Nancy Caballero PA-C) History of amputation of finger Left 4th finger amputated at the DIP joint. Right 2nd through 4th fingers with traumatic, partial amputation. History of open reduction and internal fixation (ORIF) procedure (~10/2019) Left hip intertrochanteric fracture. <Quan Joseph PA-C - Last Filed: 02/12/20 16:24> Family History Family History: Family History Mother Cerebrovascular accident Father Alcoholic cirrhosis of liver Grandparent Diabetes mellitus Sibling Neuropathy <Quan Joseph PA-C - Last Filed: 02/12/20 16:24> Social History Social History: Social History (Updated 02/13/20 @ 00:16 by Nancy Caballero PA-C) Social History: The patient lives in [place], [place] with his . He gets a majority of his care in [facility], where he lived previously. He is on SSI disability. He had 3 biological children, 1 given up for adoption in his 20s of
[2020-02-12 13:27] VITALS: BP 99/82; PULSE 66; RESP 20; O2SAT 99
[2020-02-12] MEDS: SODIUM CHLORIDE 0.9% IV 1,000 ML 999 ML IV CONT ×2 (13:27→13:29)
[2020-02-12 13:31] LABS: Basophils Percent Auto 0.4 % (0.2-1.2); Eosinophils Absolute Auto 0.5 K/mm3 (0-0.3); Eosinophils Percent Auto 5.7 % (0-4.4); Hematocrit 45.6 % (42.0-52.0); Hemoglobin 15.4 g/dL (14.0-18.0); Immature Granulocyte Absolute 0.08 K/mm3 (0.00-0.031); Immature Granulocyte Percent A 0.9 % (0-0.5); Lymphocytes Absolute Auto 1.41 K/mm3 (0.9-3.2); Lymphocytes Percent Auto 15.2 % (18.3-44.2); Mean Corpuscular HGB Conc 33.8 g/dl (32-36); Mean Corpuscular Volume 97.6 fl (80-100); Mean Platelet Volume 10.8 fl (7.4-10.4); Monocytes Absolute Auto 1.2 K/mm3 (0.1-0.6); Neutrophils Percent Auto 64.8 % (45.5-73.1); Platelet Count Result 208 k/mm3 (150-375); Red Blood Count 4.67 M/mm3 (4.6-6.20); Red Cell Distribution Width 14.4 % (11.5-14.5); White Blood Count 9.3 K/mm3 (4.5-10.0)
[2020-02-12 13:36] LABS: Uric Acid 5.9 mg/dL (3.5-8.5)
[2020-02-12 13:38] LABS: Alanine Aminotransferase 17 U/L (4-50); Albumin Level 3.5 g/dL (3.5-5.1); Alkaline Phosphatase 96 U/L (38-126); Aspartate Amino Transferase 25 U/L (17-59); Bilirubin,Total 0.5 mg/dL (0.2-1.3); Blood Urea Nitrogen 11 mg/dL (9-20); Calcium 8.6 mg/dL (8.4-10.2); Carbon Dioxide 26 mmol/L (22-30); Chloride 103 mmol/L (98-107); Estimated CRCL calculation 121 ml/min; Estimated Glomerular Filt Rate > 60; Glucose 99 mg/dL (75-110); Lactic Acid Reflex 1.3 mmol/L (0.7-2.1); Potassium 4.2 mmol/L (3.4-5.0); Sodium 136 mmol/L (137-145)
[2020-02-12 13:44] LABS: Partial Thromboplastin Time 25.3 SECONDS (22.3-36.8); Prothrombin Time 12.9 Seconds (11.1-14.7)
[2020-02-12 13:59] LABS: Erythrocyte Sedimentation Rate 28 mm/hr (0-20); Troponin I < 0.012 ng/mL (0.000-0.034)
[2020-02-12 14:05] VITALS: BP 109/71; PULSE 65; RESP 18; O2SAT 99
[2020-02-12] MEDS: HEPARIN SOD/D5W 100 UNITS/ML 25,000 UNITS/250 ML BAG 11 UNITS IV CONT (15:15)
--- NOTE | 2020-02-12 15:20 | ECG_ITS ---
Measurements Intervals [place] Rate: 62 P: 0 CO: 195 QRS: -63 QRSD: 77 T: 55 QT: 448 QTc: 456 Interpretive Statements SINUS RHYTHM ATRIAL PREMATURE COMPLEXES LOW QRS VOLTAGE IN PRECORDIAL LEADS LEFT ANTERIOR FASCICULAR BLOCK BORDERLINE ST-T WAVE ABNORMALITY- HIGH LATERAL LEADS BASELINE ARTIFACT- I, II, III, AVR, AVL, AVF, V1-V3 ABNORMAL ECG Electronically Signed On 02-12-2020 17:21:16 CDT by Dae Lam D.O.
[2020-02-12] MEDS: HEPARIN SODIUM 5,000 UNITS/ML VIAL 5000 UNITS IV PUSH (15:21)
[2020-02-12 15:26] VITALS: BP 120/70; PULSE 61; RESP 18; O2SAT 99
[2020-02-12 16:37] LABS: Troponin I < 0.012 ng/mL (0.000-0.034)
[2020-02-12 16:40] VITALS: BP 132/73; PULSE 58; RESP 20; TEMP 36.4; O2SAT 100
[2020-02-12 16:45] VITALS: BMI 22.5
[2020-02-12 16:58] VITALS: BMI 22.5
[2020-02-12 18:11] VITALS: BP 146/89; PULSE 57; RESP 22; TEMP 36.3; O2SAT 100
[2020-02-12 20:00] VITALS: BP 129/70; PULSE 53; RESP 22; TEMP 36.8; O2SAT 100
[2020-02-12] MEDS: FAMOTIDINE 20 MG/2 ML VIAL IV PUSH (20:41)
[2020-02-12] MEDS: NICOTINE (*PBKC) 14 MG PATCH 1 PATCH TRANSDERM (21:16)
--- NOTE | 2020-02-12 23:35 | PM.IMHP ---
H&P: HPI History of Present Illness Chief complaint: Left leg swelling. Narrative: Jasper Friedman is a 59-year-old male smoker with history of DVT, hypertension, COPD, peripheral neuropathy, and daily alcohol use who presented to the emergency department earlier this afternoon from home for evaluation of left leg swelling. He is known to the hospitalist service as he was admitted to 10/01/2019 with a hip fracture. The hip was fixed and he was discharged with aspirin 650 milligrams b.i.d. for DVT prophylaxis and it was mentioned on his discharge summary that he has a history of noncompliance and that this drug was chosen due to such and for financial reasons. It does not sound as though he took aspirin as instructed but he maintains that he takes aspirin 325 milligrams daily. He mentions that around the same time as his hip fracture that he noticed some knots along the vein in the inside of his left leg that have gotten progressively larger. Over the past several days he has noticed an increase in left lower leg edema and today his friends and encouraged him to come in for evaluation. He was found to have an extensive left lower leg DVT in addition to right-sided pulmonary emboli with areas of small infarcts. With further questioning, he does mention a fleeting left side chest discomfort yesterday but that has since passed. It sounds as though he is quite sedentary, and has ambulated with a walker for 2 years due to peripheral neuropathy and poor balance. He denies recent travel. He has no history of malignancy and states his weight has been stable. He denies shortness of breath, current chest pain, lightheadedness, and dizziness. Review of Systems Review of Systems: Narrative: Twelve systems were reviewed with pertinent positives and negatives as per HPI. No fever, chills, or sweats. He denies recent cold and flu symptoms. No nausea or vomiting. No diarrhea. No dysuria. He has a history of seizures years ago, presumably due to alcohol withdrawal. Previously he drank at least a 12 pack of beer day however for several years has drank 3, 32 ounce cans of beer a day after being hospitalized several times for pancreatitis. He will occasionally get shakes but has had no significant symptoms of withdrawal since he cut back drinking. He denies claudication. No abdominal pain. No back pain. He has frequent pain stemming from his peripheral neuropathy for which he takes gabapentin. Except as documented, all other systems were reviewed and are negative. [facility] Past Medical History Medical History (Updated 02/13/20 @ 00:28 by Nancy Caballero PA-C) Alcohol abuse Anxiety Arthritis Chronic obstructive pulmonary disease Deep venous thrombosis Of the left upper extremity with subsequent amputation of the left 4th finger at the DIP. Essential hypertension Pancreatitis Peripheral neuropathy Rheumatic fever Seizure Last seizure was about 20 years ago. He was never put on any seizure medicine. Thought to be related to alcohol withdrawal. Tobacco dependence Surgical History Surgical History (Updated 02/13/20 @ 00:14 by Nancy Caballero PA-C) History of amputation of finger Left 4th finger amputated at the DIP joint. Right 2nd through 4th fingers with traumatic, partial amputation. History of open reduction and internal fixation (ORIF) procedure (~10/2019) Left hip intertrochanteric fracture. Family History Family History Mother Cerebrovascular accident Father Alcoholic cirrhosis of liver Grandparent Diabetes mellitus Sibling Neuropathy Social History Social History (Updated 02/13/20 @ 00:16 by Nancy Caballero PA-C) Social History: The patient lives in [place], [place] with his . He gets a majority of his care in [facility], where he lived previously. He is on SSI disability. He had 3 biological children, 1 given up for adoption in his 20s of
[2020-02-13] VITALS (10 sets, daily range): BP systolic 112–153; BP diastolic 53–84; PULSE 42–85; RESP 12–18; TEMP 36.2–36.9; O2SAT 97–100
--- NOTE | 2020-02-13 | ECHO_ITS ---
Patient Info Name: Jasper Friedman Age: 59 years : 1960 Gender: Male Ht: 66 in Wt: 139 lbs BSA: 1.72 m2 HR: 43 bpm BP: 128 / 74 mmHg Heart Rhythm: Sinus Rhythm Technical Quality: Good Exam Date: 02/13/2020 1:30 PM Exam Location: [facility] Patient Status: Inpatient Admit Date: 02/13/2020 Staff Ordering Physician: Shruthi Correa DO Supervisor [employer]: Taz Davis RDCS, RT Attending Provider: Hannah Farah PA-C Referring Physician: Sunny HAYNES; Exam Type: CA echo doppler color flow Study Info Indications I26.99 - Other pulmonary embolism without acute cor pulmonale Complete two-dimensional, color flow and Doppler transthoracic echocardiogram is performed. Summary 1. The mitral valve annulus is mildly calcified. 2. There is trace mitral valve regurgitation. 3. Otherwise unremarkable echocardiogram. Left Ventricle Left ventricular chamber dimension is normal. Left ventricular systolic function is normal, estimated at 60-65%. The left ventricular diastolic function is normal. Right Ventricle Right ventricular chamber dimension is normal. Left Atria Left atrial chamber dimension is normal. Right Atria Right atrial chamber dimension is normal. Aortic Valve The aortic valve is normal. Pulmonic Valve The pulmonic valve is normal. Mitral Valve The mitral valve has normal leaflets. There is trace mitral valve regurgitation. The mitral valve annulus is mildly calcified. Tricuspid Valve The tricuspid valve leaflets are normal. Pericardium/Pleural The pericardium appears normal. Aorta The aortic root size at the sinus of Valsalva is normal. Left Ventricular Outflow Tract Name Value Normal LVOT 2D LVOT Diameter 2.0 cm LVOT Doppler LVOT Peak Velocity 134 cm/s LVOT Peak Gradient 7 mmHg LVOT Mean Gradient 4 mmHg LVOT VTI 30 cm LVOT VTI/AV VTI Ratio 0.9 LVOT Stroke Volume 95 ml LVOT CO 4.3 l/min LVOT CI 2.5 l/min/m2 Mitral Valve Name Value Normal MV 2D/MM MV Annulus Diameter (4C) 3.1 cm <=4.4 MV Doppler MV Peak Gradient 1 mmHg MV Mean Gradient 0 mmHg MV Decel Rush 668 cm/s2 MV PHT 40 ms MV Area (PHT) 5.5 cm2 4.0-5.0 MV Area (Cont Eq VTI) 5.7 cm2 MV Regurgitation Doppler MR Volume (Cont Eq) 32 ml
[2020-02-13] MEDS: PROPRANOLOL HCL 40 MG TABLET PO ×2 (01:16→09:18)
[2020-02-13 01:35] LABS: Partial Thromboplastin Time 71.1 SECONDS (22.3-36.8)
[2020-02-13] MEDS: LACTATED RINGERS 1,000 ML 125 ML IV CONT ×2 (03:24→12:55)
[2020-02-13 07:39] LABS: Basophils Absolute Auto 0.1 K/mm3 (0.0-0.1); Basophils Percent Auto 0.9 % (0.2-1.2); Eosinophils Absolute Auto 0.4 K/mm3 (0-0.3); Eosinophils Percent Auto 6.3 % (0-4.4); Hematocrit 43.7 % (42.0-52.0); Hemoglobin 14.2 g/dL (14.0-18.0); Immature Granulocyte Absolute 0.03 K/mm3 (0.00-0.031); Immature Granulocyte Percent A 0.5 % (0-0.5); Lymphocytes Absolute Auto 0.89 K/mm3 (0.9-3.2); Lymphocytes Percent Auto 13.9 % (18.3-44.2); Mean Corpuscular HGB Conc 32.5 g/dl (32-36); Mean Corpuscular Hemoglobin 32.6 pg (26-34); Mean Corpuscular Volume 100.5 fl (80-100); Mean Platelet Volume 10.7 fl (7.4-10.4); Monocytes Absolute Auto 0.8 K/mm3 (0.1-0.6); Monocytes Percent Auto 12.1 % (2.6-8.5); Neutrophils Absolute Auto 4.2 K/mm3 (1.3-6.7); Neutrophils Percent Auto 66.3 % (45.5-73.1); Platelet Count Result 131 k/mm3 (150-375); Red Blood Count 4.35 M/mm3 (4.6-6.20); Red Cell Distribution Width 14.4 % (11.5-14.5); White Blood Count 6.4 K/mm3 (4.5-10.0)
[2020-02-13 07:51] LABS: Partial Thromboplastin Time 73.3 SECONDS (22.3-36.8)
[2020-02-13 07:56] LABS: Alanine Aminotransferase 14 U/L (4-50); Albumin Level 2.8 g/dL (3.5-5.1); Alkaline Phosphatase 68 U/L (38-126); Aspartate Amino Transferase 20 U/L (17-59); Bilirubin,Total 0.4 mg/dL (0.2-1.3); Blood Urea Nitrogen 8 mg/dL (9-20); Calcium 8.2 mg/dL (8.4-10.2); Carbon Dioxide 24 mmol/L (22-30); Chloride 105 mmol/L (98-107); Cholesterol 98 mg/dL (0-200); Estimated CRCL calculation 122 ml/min; Estimated Glomerular Filt Rate > 60; Glucose 93 mg/dL (75-110); HDL Direct 27 mg/dL; Potassium 4.1 mmol/L (3.4-5.0); Sodium 135 mmol/L (137-145); Triglycerides 65 mg/dL (<150)
[2020-02-13 08:07] LABS: LDL Cholesterol Direct 56 mg/dL
[2020-02-13] MEDS: FAMOTIDINE 20 MG/2 ML VIAL IV PUSH ×2 (09:18→20:12)
[2020-02-13] MEDS: FOLIC ACID 1 MG TABLET PO (09:18)
[2020-02-13] MEDS: GABAPENTIN 300 MG CAPSULE PO ×3 (09:18→17:29)
[2020-02-13] MEDS: THIAMINE HCL 100 MG TABLET PO (09:18)
[2020-02-13] MEDS: ASPIRIN 81 MG ENTERIC TABLET PO (09:18)
[2020-02-13 12:35] LABS: Partial Thromboplastin Time 53.7 SECONDS (22.3-36.8)
--- NOTE | 2020-02-13 13:38 | PM.IMPN ---
Progress Note: A&P Assessment and Plan (1) Pulmonary emboli: Code(s): I26.99 - Other pulmonary embolism without acute cor pulmonale Status: Acute Assessment and Plan: With acute emboli in the right upper and lower lobes and small infarcts. Patient has a history of DVTs in the past and has been on Coumadin and developed a massive GI bleed as per his primary care provider (Dr. Jayesh Francis at [facility]). The patient's INR during his massive GI bleed was within therapeutic range. His primary care provider Dr. Francis does not feel comfortable with monitoring his INR levels since he is an hour and a half away. He recommends the patient getting a local primary care provider or clinic to follow his INRs in case something happens. The patient is feeling well today, resting comfortably on room air and has some improvement of swelling to his left leg Plan is to get the patient started on Lovenox injections and Coumadin tonight Patient does not have insurance and he is able to pay for Coumadin and our care coordinators are working with how much Lovenox injections will be at discharge. There is also been some concerns in the past about his compliance to medications. I expressed the importance of taking his Coumadin and giving himself Lovenox check shins if he is discharged. He understands and agrees. We are waiting for the patient to have an echocardiogram to rule out any right heart strain from his pulmonary embolisms. The patient may need to remain hospitalized until his Coumadin level is within normal range and continue monitoring to ensure he does not have a major GI bleed from the anticoagulation. Continue monitoring patient's symptoms overnight. (2) Left leg DVT: Code(s): I82.402 - Acute embolism and thrombosis of unspecified deep veins of left lower extremity Status: Acute Assessment and Plan: This is an extensive left leg DVT, perhaps due to his sedentary lifestyle and/or in addition to recent hip surgery (it sounds as though he was not compliant with DVT prophylaxis postoperatively). The patient has also had DVTs in the past and was on Coumadin in the past until he had a massive GI bleed. Please see above under PE as to the plan. (3) Tobacco dependence: Code(s): F17.200 - Nicotine dependence, unspecified, uncomplicated Status: Acute Assessment and Plan: Nicotine patch available. (4) Alcohol abuse: Code(s): F10.10 - Alcohol abuse, uncomplicated Status: Acute Assessment and Plan: He has cut back his drinking significantly over the last 3 years and now drinks 3, 32 ounce cans of beer a day. Continue the patient on a PPI and he will need this upon discharge especially with history of GI bleed while on Coumadin in the past See what has been 0 today. Continue CIWA protocol. Librium available p.o. if needed. (5) Chronic obstructive pulmonary disease: Code(s): J44.9 - Chronic obstructive pulmonary disease, unspecified Status: Acute Assessment and Plan: No acute issues. Lungs are clear at this time. (6) Liver masses: Code(s): R16.0 - Hepatomegaly, not elsewhere classified Status: Acute Assessment and Plan: Liver masses which may be benign or malignant and recommended an MRI to be ordered. MRI of the abdomen has been completed but were pending the interpretation by the radiologist. If masses are suspicious for cancer we will need to get Heme-Onc involved. He is not having any abdominal issues at this time. (7) Abdominal aortic stenosis: Code(s): Q25.1 - Coarctation of aorta Status: Acute
[2020-02-13] MEDS: HEPARIN SODIUM 5,000 UNITS/ML VIAL 2500 UNITS IV PUSH (15:06)
[2020-02-13] MEDS: ENOXAPARIN 80 MG/0.8 ML SYRINGE 65 MG SUB-Q (17:29)
[2020-02-13] MEDS: WARFARIN (*PBKC) 5 MG TABLET PO (17:29)
[2020-02-13] MEDS: NICOTINE (*PBKC) 14 MG PATCH 1 PATCH TRANSDERM (20:10)
--- NOTE | 2020-02-13 21:33 | PC.NURSE ---
patients HR was 42 this evening. Beta antonia scheduled for 21:00 was held and the [facility] was notified of low HR. Patient is asymptomatic.
[2020-02-14] VITALS: BP 118/65; PULSE 42; PULSE 52; RESP 18; TEMP 36.6; O2SAT 100
[2020-02-14 04:00] VITALS: BP 127/72; PULSE 47; PULSE 48; RESP 18; TEMP 36.4; O2SAT 99
[2020-02-14] MEDS: ENOXAPARIN 80 MG/0.8 ML SYRINGE 65 MG SUB-Q (05:16)
[2020-02-14 06:04] LABS: Hematocrit 42.6 % (42.0-52.0); Hemoglobin 13.9 g/dL (14.0-18.0); Mean Corpuscular HGB Conc 32.6 g/dl (32-36); Mean Corpuscular Hemoglobin 31.9 pg (26-34); Mean Corpuscular Volume 97.7 fl (80-100); Mean Platelet Volume 10.3 fl (7.4-10.4); Platelet Count Result 196 k/mm3 (150-375); Red Blood Count 4.36 M/mm3 (4.6-6.20); White Blood Count 6.4 K/mm3 (4.5-10.0)
[2020-02-14 06:11] LABS: INR 1.1; Prothrombin Time 13.6 Seconds (11.1-14.7)
[2020-02-14 06:23] LABS: Blood Urea Nitrogen 6 mg/dL (9-20); Calcium 8.4 mg/dL (8.4-10.2); Carbon Dioxide 27 mmol/L (22-30); Chloride 103 mmol/L (98-107); Estimated CRCL calculation 103 ml/min; Estimated Glomerular Filt Rate > 60; Glucose 91 mg/dL (75-110); Sodium 134 mmol/L (137-145)
[2020-02-14] MEDS: GABAPENTIN 300 MG CAPSULE PO ×2 (08:38→14:54)
[2020-02-14] MEDS: ASPIRIN 81 MG ENTERIC TABLET PO (08:38)
[2020-02-14] MEDS: THIAMINE HCL 100 MG TABLET PO (08:38)
[2020-02-14] MEDS: FAMOTIDINE 20 MG/2 ML VIAL IV PUSH (08:38)
[2020-02-14] MEDS: FOLIC ACID 1 MG TABLET PO (08:38)
[2020-02-14 08:40] VITALS: PULSE 50
[2020-02-14 10:00] VITALS: BP 131/66; PULSE 50; RESP 12; TEMP 36.6; O2SAT 100
--- NOTE | 2020-02-14 12:11 | PM.DS ---
DS: Admitting Diagnosis Admitting Diagnosis Admitting Diagnosis: Other pulmonary embolism without acute cor pulmonale DS: Discharge Diagnosis Discharge Diagnosis (1) Pulmonary emboli: Code(s): I26.99 - Other pulmonary embolism without acute cor pulmonale Status: Acute Assessment and Plan: With acute emboli in the right upper and lower lobes and small infarcts. Patient has a history of DVTs in the past and has been on Coumadin and developed a massive GI bleed as per his primary care provider (Dr. Jayesh Francis at [facility]). The patient's INR during his massive GI bleed was within therapeutic range. His PCP recommends the patient getting a local primary care provider or clinic to follow his INRs in case something happens. CC has set up an appointment with Dr. Wolfe on 02/15 for further care. Patient to continue coumadin bridged with Lovenox (Will send home with 10 day supply of Lovenox per CC). Patient thinks swelling in leg is improved. INR at 1.1 today. Echo shows no evidence of heart strain. Continue Lovenox therapeutic dosage BID; PCP to manage Continue Coumadin 5 mg every evening until further instructions from PCP. Will do Daily INR checks until further rec from PCP. Patient agreeable and comfortable with plan; He has asked for me to describe plan with sister Paula (2) Left leg DVT: Code(s): I82.402 - Acute embolism and thrombosis of unspecified deep veins of left lower extremity Status: Acute Assessment and Plan: This is an extensive left leg DVT, perhaps due to his sedentary lifestyle and/or in addition to recent hip surgery (it sounds as though he was not compliant with DVT prophylaxis postoperatively). The patient has also had DVTs in the past and was on Coumadin in the past until he had a massive GI bleed. Please see above a/p (3) Tobacco dependence: Code(s): F17.200 - Nicotine dependence, unspecified, uncomplicated Status: Acute Assessment and Plan: Nicotine patch available. (4) Alcohol abuse: Code(s): F10.10 - Alcohol abuse, uncomplicated Status: Acute Assessment and Plan: He has cut back his drinking significantly over the last 3 years and now drinks 3, 32 ounce cans of beer a day. Continue the patient on a PPI and he will need this upon discharge especially with history of GI bleed while on Coumadin in the past CIWA has been 0-1 during stay Continue CIWA protocol during stay; Librium available p.o. if needed. (5) Chronic obstructive pulmonary disease: Code(s): J44.9 - Chronic obstructive pulmonary disease, unspecified Status: Acute Assessment and Plan: No acute issues. Lungs are clear at this time. (6) Liver masses: Code(s): R16.0 - Hepatomegaly, not elsewhere classified Status: Acute Assessment and Plan: MRI of the abdomen shows Focal steatosis in the liver correlating with the CT abnormalities. No evidence of malignancy. F/u with PCP He is not having any abdominal issues at this time. (7) Abdominal aortic stenosis: Code(s): Q25.1 - Coarctation of aorta Status: Acute Assessment and Plan: An incidental finding on chest CTA and MRI abd. He notes having peripheral neuropathy but this pain has been stable Given his exam findings and decreased pulses, he likely has pretty significant peripheral vascular disease and will need a referral to a vascular surgeon as an outpatient. He understands he will f/u with PCP DS: Summary Hospital Course Reason for hospitalization: PE, left leg DVT Hospital Course: Jose
== END 2020-02-14 16:03 | disposition home or self-care (01) | DRG 197 ==
LOC: ANHED 15:38 → ANH2MED 15:45
PROVIDERS: Emergency Medicine Emergency Medical Services; Physician Assistant; Admitting Provider Internal Medicine; Emergency Provider Emergency Medicine; PCP Family Medicine; Visit Provider Physician Assistant
DX: I82.412 Acute embolism and thrombosis of left femoral vein (principal); I82.432 Acute embolism and thrombosis of left popliteal vein; I82.442 Acute embolism and thrombosis of left tibial vein; I82.812 Embolism and thrombosis of superficial veins of left lower extremity; I26.99 Other pulmonary embolism without acute cor pulmonale; R16.0 Hepatomegaly, not elsewhere classified; J44.9 Chronic obstructive pulmonary disease, unspecified; I73.9 Peripheral vascular disease, unspecified; I35.0 Nonrheumatic aortic (valve) stenosis; I10 Essential (primary) hypertension; M19.90 Unspecified osteoarthritis, unspecified site; F41.9 Anxiety disorder, unspecified; G62.9 Polyneuropathy, unspecified; F10.10 Alcohol abuse, uncomplicated; F17.200 Nicotine dependence, unspecified, uncomplicated; Z86.718 Personal history of other venous thrombosis and embolism; Z79.01 Long term (current) use of anticoagulants; Z89.022 Acquired absence of left finger(s); Z91.14 Patient's other noncompliance with medication regimen; Z79.82 Long term (current) use of aspirin
CPT/HCPCS: 36415; 71045; 71275; 73610; 74183; 80048; 80053; 80061; 80076; 83605; 84484; 84550; 85025; 85027; 85610; 85652; 85730; 86140; 87040; 93005; 93306; 93971; 96361; 96365; 96366; 96367; 96375; 99285; A9270; A9577; G0378; G0379; J0131; J1644; J1650; J7030; J7120; Q9967

== ENCOUNTER 2020-09-14 16:40 | Emergency (ER) | payer MEDICAID, SELFPAY ==
--- NOTE | ~2020-09-14 | CT_ITS ---
EXAMINATION: CTA abd aorta runoff DATE: 09/14/2020 20:30 INDICATION: Recent right femoral popliteal bypass graft. Wound infection at the groin. TECHNIQUE: Computed tomographic angiography (CTA) of the abdominal, pelvis, and both lower extremitie s was performed with 150 mL Omnipaque 350 intravenous contrast. Automated exposure control and iterat irving reconstruction technique were employed. The dose-length product was mGy-cm. COMPARISON: None. FINDINGS: ABDOMINAL AORTA AND ITS BRANCHES: Atherosclerotic disease without significant stenosis throughout the abdominal aorta. Moderate 50-70 % stenosis at the origin of the superior mesenteric artery. Mild stenosis at the origin of the left re nal artery and at the origin of one of 2 right renal arteries which supplies the upper pole of the ri ght kidney. There is prominent calcified plaque at the origin of a second right renal artery supplyin g the lower pole which may be hemodynamically significant however the arteries to small to quantitate the degree of stenosis. Similar the inferior mesenteric artery is too small to assess for stenosis b ut does appear to opacify with contrast. PELVIC VASCULATURE: Mild less than 50% stenosis along the bilateral common iliac arteries, the left external iliac artery and the left internal iliac artery. Moderate stenosis at the origin of the right internal iliac robert ry. There is been stenting of the right common iliac artery which appears patent. RIGHT LOWER EXTREMITY: Right common femoral artery is patent. There is complete occlusion of the right femoral artery beginn ing at its origin which is thrombosed through the proximal popliteal artery where there is reconstitu tion by collaterals just above level of the knee. There is a patent right femoral to popliteal bypass graft with anastomosis just below the level of the right knee. There is subsequent three-vessel runo ff to the right foot. The right profunda (deep) femoral vein is also patent. There is a peripherally enhancing multiloculated fluid collection in the medial right thigh which begins near the origin of t he bypass graft and extends approximately 16.9 cm craniocaudally along the graft. This measures up to 6.0 x 4.1 cm in maximal transaxial dimensions most likely representing a postoperative hematoma. Dif ferential would include abscess although there is no significant inflammatory stranding in the immedi ately adjacent fat to more specifically suggest this. Asymmetric soft tissue swelling with subcutaneo us edema throughout the right lower limb. LEFT LOWER EXTREMITY: 70% stenosis at the left common femoral artery. Mild stenosis at the origin of the left profunda (rosetta p) femoral artery. Multifocal mild stenosis along the left femoral artery. Moderate 50-70% stenosis i n the left popliteal artery at the level of the knee. And in the tibioperoneal trunk. The left anteri or tibial artery is atretic. There is runoff to the level of the left ankle and the left peroneal art delbert and into the left foot on the left posterior tibial artery. ADDITIONAL FINDINGS: Calcified right lower lobe nodule consistent with old granulomatous disease. Mild atelectasis in the right middle and bilateral lower lobes. No pericardial or pleural effusion. Liver, gallbladder, splee n, pancreas, bilateral adrenal glands and left kidney are normal. 8 mm low-attenuation right renal cy st. Symmetric bilateral renal enhancement. Bowels including the appendix are normal. Bladder is leander l. No free intraperitoneal gas or fluid. There is nonspecific haziness to the fat of the central mese ntery. No pathologically enlarged abdominal or pelvic lymphadenopathy. Old healed intratrochanteric f racture of the proximal left femur with antegrade intramedullary josse and femoral neck dynamic lisa miryam screw fixation. Chronic L3 compression fracture. Multiple skin jewell are seen extending along the medial aspect
[2020-09-14 16:51] VITALS: BP 106/69; PULSE 82; RESP 18; TEMP 36.1; O2SAT 100
--- NOTE | 2020-09-14 18:15 | PC.NURSE ---
provider in room. history given. incisions examined. patient updated on treatment plan. attempt x 2 for IV access without success.
--- NOTE | 2020-09-14 18:22 | ED.WOUNDLAC ---
HPI - Wound/Laceration General Chief Complaint: Wound/Laceration Stated Complaint: wound infection in groin Time Seen by Provider: 09/14/20 17:57 Source: patient Mode of arrival: ambulatory Limitations: no limitations History of Present Illness HPI narrative: A 60-year-old male comes into the emergency department with complaints of pain and swelling in his recent surgical incision site. Patient states that he had a home health person come to the house and noted that there was some drainage and some concern for possible infection. Patient states that he has longstanding peripheral vascular disease and neuropathy and does not note that he feels any specific changes in the lower leg. Patient states that he is still smoking. Related Data Home Medications Medication Instructions Recorded Confirmed gabapentin 300 mg PO TID 10/01/19 04/18/20 propranolol 40 mg PO Q12H 10/01/19 04/18/20 hydrocodone-acetaminophen 1 tablet PO TID PRN 02/12/20 04/18/20 silver sulfadiazine 1 applic TOPICAL BID 02/12/20 04/18/20 hydrocodone-acetaminophen 09/14/20 propranolol 09/14/20 Allergies Allergy/AdvReac Type Severity Reaction Status Date / Time bacitracin Allergy Intermediate Rash Verified 02/12/20 12:45 neomycin Allergy Intermediate Rash Verified 02/12/20 12:45 polymyxin B Allergy Intermediate Rash Verified 02/12/20 12:45 clavulanic acid Allergy Mild Rash Verified 02/12/20 12:45 amoxicillin [From Augmentin] Allergy Hives Verified 09/14/20 17:55 Review of Systems Review of Systems: Narrative: CONSTITUTIONAL: Denies fever, chills, or sweats. EYES: Denies visual changes, redness, or discharge. ENT: Denies rhinorrhea, congestion, sore throat, or otalgia. CARDIOVASCULAR: Denies chest pain, palpitations, or edema. RESPIRATORY: Denies cough or dyspnea. GASTROINTESTINAL: Denies abdominal pain, nausea, vomiting, or diarrhea. GENITOURINARY: Denies dysuria or hematuria. SKIN: Denies rash or itching. MUSCULOSKELETAL: Denies back pain, joint pain, or myalgia. NEUROLOGIC: Denies headache, numbness, dizziness, or weakness. PSYCHIATRIC: Denies anxiety or depression. [facility] Past Medical History Medical History (Updated 09/14/20 @ 23:15 by Trey Medina DO) Alcohol abuse Anxiety Arthritis Chronic obstructive pulmonary disease Deep venous thrombosis Of the left upper extremity with subsequent amputation of the left 4th finger at the DIP. Essential hypertension Pancreatitis Peripheral neuropathy Rheumatic fever Seizure Last seizure was about 20 years ago. He was never put on any seizure medicine. Thought to be related to alcohol withdrawal. Tobacco dependence Surgical History Surgical History (Updated 09/14/20 @ 23:15 by Trey Medina DO) History of amputation of finger Left 4th finger amputated at the DIP joint. Right 2nd through 4th fingers with traumatic, partial amputation. History of open reduction and internal fixation (ORIF) procedure (~10/2019) Left hip intertrochanteric fracture. Family History Family History Mother Cerebrovascular accident Father Alcoholic cirrhosis of liver Grandparent Diabetes mellitus Sibling Neuropathy Social History Social History Social History: The patient lives in [place], [place] with his . He gets a majority of his care in [facility], where he lived previously. He is on SSI disability. He had 3 biological children, 1 given up for adoption in his 20s of unknown causes, a daughter shortly after , and he has 1 son living who is healthy. He smokes a pack of cigarettes per day and has for many years. He drank a 12 pack of beer for many years but for the last several years he has been drinking 3, 32 ounce cans of beer a day. He smoke marijuana on occasion. He designates his , Ayah Bosch, as his surrogate decision maker and he wishes to be a full code. Smoking pac
--- NOTE | 2020-09-14 18:47 | PC.NURSE ---
Charge nurse in room now to attempt peripheral IV access. provider aware.
[2020-09-14 18:59] LABS: Basophils Absolute Auto 0.1 K/mm3 (0.0-0.1); Basophils Percent Auto 0.5 % (0.2-1.2); Eosinophils Absolute Auto 0.5 K/mm3 (0-0.3); Eosinophils Percent Auto 5.2 % (0-4.4); Hematocrit 35.7 % (42.0-52.0); Hemoglobin 10.9 g/dL (14.0-18.0); Immature Granulocyte Absolute 0.16 K/mm3 (0.00-0.031); Immature Granulocyte Percent A 1.7 % (0-0.5); Mean Corpuscular HGB Conc 30.5 g/dl (32-36); Mean Corpuscular Hemoglobin 31.1 pg (26-34); Mean Platelet Volume 9.5 fl (7.4-10.4); Monocytes Absolute Auto 1.2 K/mm3 (0.1-0.6); Monocytes Percent Auto 12.7 % (2.6-8.5); Neutrophils Absolute Auto 5.8 K/mm3 (1.3-6.7); Neutrophils Percent Auto 61.9 % (45.5-73.1); Platelet Count Result 385 k/mm3 (150-375); Red Cell Distribution Width 17.7 % (11.5-14.5); White Blood Count 9.4 K/mm3 (4.5-10.0)
[2020-09-14 19:10] LABS: Alanine Aminotransferase 24 U/L (4-50); Albumin Level 3.7 g/dL (3.5-5.1); Alkaline Phosphatase 73 U/L (38-126); Anion Gap 7 mmol/L (8-16); Aspartate Amino Transferase 52 U/L (17-59); Bilirubin,Total 0.7 mg/dL (0.2-1.3); Blood Urea Nitrogen 5 mg/dL (9-20); Calcium 8.7 mg/dL (8.4-10.2); Carbon Dioxide 28 mmol/L (22-30); Chloride 104 mmol/L (98-107); Estimated CRCL calculation 89 ml/min; Estimated Glomerular Filt Rate > 60; Glucose 91 mg/dL (75-110); Potassium 4.5 mmol/L (3.4-5.0); Sodium 139 mmol/L (137-145)
[2020-09-14 19:30] VITALS: BP 148/68; PULSE 78; RESP 22; TEMP 36.9; O2SAT 94
--- NOTE | 2020-09-14 19:41 | PC.NURSE ---
spoke with airbrush artist technical. patient needs larger sized IV access. Jordon ANNA in room with ultrasound machine. patient and sister updated.
[2020-09-14 20:03] LABS: Prothrombin Time 14.1 Seconds (11.1-14.7)
[2020-09-14 20:04] LABS: Partial Thromboplastin Time 32.5 SECONDS (22.3-36.8)
--- NOTE | 2020-09-14 20:44 | PC.NURSE ---
patient back from CT. resting on stretcher. updated patient and sister on current treatment plan and expected wait time. patient states he still drinks 3-4 tallboy beers per day. last drank at around 1400 prior to coming to ED. patient also continues to smoke. sister with questions regarding admission vs discharge.
--- NOTE | 2020-09-14 22:27 | PC.NURSE ---
waiting for CTA results. sister in room states she has to pick someone up from work at 11. results still pending. resting on stretcher. appears comfortable. denies needs. appears to be sleeping intermittently.
--- NOTE | 2020-09-14 22:55 | PC.NURSE ---
CT resulted. patient aware. Dr. Medina at bedside. will try to aspirate small amount of fluid from right groin for abscess vs hematoma. ultrasound used. patient belligerent with MD. threatening. patient did allow procedure. see MD notes.
[2020-09-14 23:25] VITALS: BP 152/89; PULSE 100; RESP 16; O2SAT 94
== END 2020-09-14 23:39 | disposition home or self-care (01) ==
PROVIDERS: Emergency Provider Emergency Medicine; PCP Emergency Medicine
DX: I97.638 Postprocedural hematoma of a circulatory system organ or structure following other circulatory system procedure (principal); F10.10 Alcohol abuse, uncomplicated; G62.9 Polyneuropathy, unspecified; J44.9 Chronic obstructive pulmonary disease, unspecified; Z86.718 Personal history of other venous thrombosis and embolism; I10 Essential (primary) hypertension; F17.210 Nicotine dependence, cigarettes, uncomplicated; Z89.022 Acquired absence of left finger(s); Z89.021 Acquired absence of right finger(s); I70.0 Atherosclerosis of aorta; I70.203 Unspecified atherosclerosis of native arteries of extremities, bilateral legs; K55.1 Chronic vascular disorders of intestine; I70.1 Atherosclerosis of renal artery
CPT/HCPCS: 10160; 36415; 75635; 80053; 85025; 85610; 85730; 99284; A9270; Q9967

== ENCOUNTER 2020-10-29 11:23 | Outpatient (NON) | payer BC, SELFPAY ==
[2020-10-29 12:14] LABS: Erythrocyte Sedimentation Rate 22 mm/hr (0-20)
[2020-10-29 12:20] LABS: CRP < 0.5 mg/dL (<1.0)
== END 2020-10-29 11:24 ==
PROVIDERS: PCP Emergency Medicine
DX: S72.142D Displaced intertrochanteric fracture of left femur, subsequent encounter for closed fracture with routine healing (principal); T81.49XA Infection following a procedure, other surgical site, initial encounter
CPT/HCPCS: 85652; 86140

== ENCOUNTER 2020-11-12 13:31 | Outpatient (NON) | payer BC, SELFPAY ==
[2020-11-12 14:49] LABS: Basophils Absolute Auto 0.1 K/mm3 (0.0-0.1); Basophils Percent Auto 0.8 % (0.2-1.2); Eosinophils Absolute Auto 0.5 K/mm3 (0-0.3); Eosinophils Percent Auto 7.1 % (0-4.4); Hematocrit 38.8 % (42.0-52.0); Hemoglobin 12.3 g/dL (14.0-18.0); Immature Granulocyte Absolute 0.02 K/mm3 (0.00-0.031); Immature Granulocyte Percent A 0.3 % (0-0.5); Lymphocytes Absolute Auto 1.41 K/mm3 (0.9-3.2); Lymphocytes Percent Auto 19.7 % (18.3-44.2); Mean Corpuscular HGB Conc 31.7 g/dl (32-36); Mean Corpuscular Hemoglobin 28.9 pg (26-34); Mean Corpuscular Volume 91.1 fl (80-100); Mean Platelet Volume 11.4 fl (7.4-10.4); Monocytes Absolute Auto 0.8 K/mm3 (0.1-0.6); Monocytes Percent Auto 11.3 % (2.6-8.5); Neutrophils Absolute Auto 4.3 K/mm3 (1.3-6.7); Neutrophils Percent Auto 60.8 % (45.5-73.1); Platelet Count Result 164 k/mm3 (150-375); Red Blood Count 4.26 M/mm3 (4.6-6.20); Red Cell Distribution Width 17.9 % (11.5-14.5); White Blood Count 7.2 K/mm3 (4.5-10.0)
[2020-11-12 14:57] LABS: Alanine Aminotransferase 14 U/L (4-50); Albumin Level 2.7 g/dL (3.5-5.1); Alkaline Phosphatase 63 U/L (38-126); Anion Gap 2 mmol/L (8-16); Aspartate Amino Transferase 43 U/L (17-59); Bilirubin,Total < 0.1 mg/dL (0.2-1.3); Blood Urea Nitrogen 8 mg/dL (9-20); Calcium 7.6 mg/dL (8.4-10.2); Carbon Dioxide 24 mmol/L (22-30); Chloride 112 mmol/L (98-107); Estimated Glomerular Filt Rate > 60; Glucose 86 mg/dL (75-110); Potassium 4.2 mmol/L (3.4-5.0); Sodium 138 mmol/L (137-145)
== END 2020-11-12 13:32 | disposition home or self-care (01) ==
PROVIDERS: PCP Emergency Medicine; Visit Provider Internal Medicine Infectious Disease
DX: T81.49XA Infection following a procedure, other surgical site, initial encounter (principal); S72.142A Displaced intertrochanteric fracture of left femur, initial encounter for closed fracture; Y83.8 Other surgical procedures as the cause of abnormal reaction of the patient, or of later complication, without mention of misadventure at the time of the procedure; Z79.2 Long term (current) use of antibiotics
CPT/HCPCS: 80053; 85025

== ENCOUNTER 2020-11-19 12:02 | Outpatient (RCR) | payer BC, SELFPAY ==
[2020-10-15 12:27] LABS: Basophils Absolute Auto 0.1 K/mm3 (0.0-0.1); Basophils Percent Auto 0.6 % (0.2-1.2); Eosinophils Absolute Auto 0.3 K/mm3 (0-0.3); Eosinophils Percent Auto 3.5 % (0-4.4); Hemoglobin 10.7 g/dL (14.0-18.0); Immature Granulocyte Absolute 0.04 K/mm3 (0.00-0.031); Immature Granulocyte Percent A 0.5 % (0-0.5); Lymphocytes Absolute Auto 1.43 K/mm3 (0.9-3.2); Lymphocytes Percent Auto 16.3 % (18.3-44.2); Mean Corpuscular HGB Conc 31.5 g/dl (32-36); Mean Corpuscular Hemoglobin 29.1 pg (26-34); Mean Corpuscular Volume 92.4 fl (80-100); Mean Platelet Volume 10.9 fl (7.4-10.4); Monocytes Percent Auto 11.7 % (2.6-8.5); Neutrophils Absolute Auto 5.9 K/mm3 (1.3-6.7); Neutrophils Percent Auto 67.4 % (45.5-73.1); Platelet Count Result 347 k/mm3 (150-375); Red Blood Count 3.68 M/mm3 (4.6-6.20); Red Cell Distribution Width 16.8 % (11.5-14.5); White Blood Count 8.8 K/mm3 (4.5-10.0)
[2020-10-15 12:42] LABS: Alanine Aminotransferase 20 U/L (4-50); Albumin Level 2.7 g/dL (3.5-5.1); Alkaline Phosphatase 64 U/L (38-126); Anion Gap 3 mmol/L (8-16); Aspartate Amino Transferase 42 U/L (17-59); Bilirubin,Total 0.2 mg/dL (0.2-1.3); Blood Urea Nitrogen 4 mg/dL (9-20); Calcium 8.1 mg/dL (8.4-10.2); Carbon Dioxide 27 mmol/L (22-30); Chloride 106 mmol/L (98-107); Estimated Glomerular Filt Rate > 60; Glucose 99 mg/dL (75-110); Potassium 3.9 mmol/L (3.4-5.0); Sodium 136 mmol/L (137-145)
[2020-10-22 14:31] LABS: Basophils Absolute Auto 0.1 K/mm3 (0.0-0.1); Basophils Percent Auto 0.7 % (0.2-1.2); Eosinophils Absolute Auto 0.5 K/mm3 (0-0.3); Eosinophils Percent Auto 6.9 % (0-4.4); Hemoglobin 11.1 g/dL (14.0-18.0); Immature Granulocyte Absolute 0.03 K/mm3 (0.00-0.031); Immature Granulocyte Percent A 0.4 % (0-0.5); Lymphocytes Absolute Auto 1.61 K/mm3 (0.9-3.2); Lymphocytes Percent Auto 23.1 % (18.3-44.2); Mean Corpuscular HGB Conc 30.8 g/dl (32-36); Mean Corpuscular Hemoglobin 28.2 pg (26-34); Mean Corpuscular Volume 91.4 fl (80-100); Mean Platelet Volume 10.9 fl (7.4-10.4); Monocytes Absolute Auto 0.8 K/mm3 (0.1-0.6); Neutrophils Percent Auto 56.9 % (45.5-73.1); Platelet Count Result 188 k/mm3 (150-375); Red Blood Count 3.94 M/mm3 (4.6-6.20); Red Cell Distribution Width 17.1 % (11.5-14.5)
[2020-10-22 14:39] LABS: Alanine Aminotransferase 16 U/L (4-50); Albumin Level 2.7 g/dL (3.5-5.1); Alkaline Phosphatase 54 U/L (38-126); Anion Gap 5 mmol/L (8-16); Aspartate Amino Transferase 26 U/L (17-59); Bilirubin,Total < 0.1 mg/dL (0.2-1.3); Blood Urea Nitrogen 6 mg/dL (9-20); Calcium 7.8 mg/dL (8.4-10.2); Carbon Dioxide 25 mmol/L (22-30); Chloride 107 mmol/L (98-107); Estimated Glomerular Filt Rate > 60; Glucose 75 mg/dL (75-110); Potassium 4.2 mmol/L (3.4-5.0); Sodium 137 mmol/L (137-145)
[2020-10-29 11:51] LABS: Basophils Absolute Auto 0.1 K/mm3 (0.0-0.1); Basophils Percent Auto 0.7 % (0.2-1.2); Eosinophils Absolute Auto 0.3 K/mm3 (0-0.3); Eosinophils Percent Auto 3.5 % (0-4.4); Hematocrit 37.7 % (42.0-52.0); Hemoglobin 11.6 g/dL (14.0-18.0); Immature Granulocyte Absolute 0.02 K/mm3 (0.00-0.031); Immature Granulocyte Percent A 0.2 % (0-0.5); Lymphocytes Absolute Auto 1.49 K/mm3 (0.9-3.2); Lymphocytes Percent Auto 17.8 % (18.3-44.2); Mean Corpuscular HGB Conc 30.8 g/dl (32-36); Mean Corpuscular Hemoglobin 28.5 pg (26-34); Mean Corpuscular Volume 92.6 fl (80-100); Mean Platelet Volume 11.3 fl (7.4-10.4); Monocytes Absolute Auto 0.8 K/mm3 (0.1-0.6); Monocytes Percent Auto 9.7 % (2.6-8.5); Neutrophils Absolute Auto 5.7 K/mm3 (1.3-6.7); Neutrophils Percent Auto 68.1 % (45.5-73.1); Platelet Count Result 157 k/mm3 (150-375); Red Blood Count 4.07 M/mm3 (4.6-6.20); Red Cell Distribution Width 17.2 % (11.5-14.5); White Blood Count 8.4 K/mm3 (4.5-10.0)
[2020-10-29 12:07] LABS: Alanine Aminotransferase 13 U/L (4-50); Albumin Level 2.6 g/dL (3.5-5.1); Alkaline Phosphatase 58 U/L (38-126); Anion Gap 3 mmol/L (8-16); Aspartate Amino Transferase 28 U/L (17-59); Bilirubin,Total 0.1 mg/dL (0.2-1.3); Blood Urea Nitrogen 6 mg/dL (9-20); Calcium 7.8 mg/dL (8.4-10.2); Carbon Dioxide 27 mmol/L (22-30); Chloride 107 mmol/L (98-107); Estimated Glomerular Filt Rate > 60; Glucose 93 mg/dL (75-110); Potassium 3.8 mmol/L (3.4-5.0); Sodium 137 mmol/L (137-145)
[2020-11-05 11:12] LABS: Basophils Absolute Auto 0.1 K/mm3 (0.0-0.1); Basophils Percent Auto 0.7 % (0.2-1.2); Eosinophils Absolute Auto 0.2 K/mm3 (0-0.3); Eosinophils Percent Auto 2.6 % (0-4.4); Hematocrit 37.4 % (42.0-52.0); Hemoglobin 11.6 g/dL (14.0-18.0); Immature Granulocyte Absolute 0.03 K/mm3 (0.00-0.031); Immature Granulocyte Percent A 0.4 % (0-0.5); Lymphocytes Absolute Auto 1.53 K/mm3 (0.9-3.2); Lymphocytes Percent Auto 18.6 % (18.3-44.2); Mean Corpuscular Hemoglobin 28.7 pg (26-34); Mean Corpuscular Volume 92.6 fl (80-100); Mean Platelet Volume 11.7 fl (7.4-10.4); Monocytes Absolute Auto 0.9 K/mm3 (0.1-0.6); Monocytes Percent Auto 11.2 % (2.6-8.5); Neutrophils Absolute Auto 5.5 K/mm3 (1.3-6.7); Neutrophils Percent Auto 66.5 % (45.5-73.1); Platelet Count Result 149 k/mm3 (150-375); Red Blood Count 4.04 M/mm3 (4.6-6.20); Red Cell Distribution Width 17.2 % (11.5-14.5); White Blood Count 8.2 K/mm3 (4.5-10.0)
[2020-11-05 11:29] LABS: Alanine Aminotransferase 15 U/L (4-50); Albumin Level 2.6 g/dL (3.5-5.1); Alkaline Phosphatase 58 U/L (38-126); Anion Gap 3 mmol/L (8-16); Aspartate Amino Transferase 45 U/L (17-59); Bilirubin,Total < 0.1 mg/dL (0.2-1.3); Blood Urea Nitrogen 6 mg/dL (9-20); Calcium 7.8 mg/dL (8.4-10.2); Carbon Dioxide 24 mmol/L (22-30); Chloride 111 mmol/L (98-107); Estimated Glomerular Filt Rate > 60; Glucose 83 mg/dL (75-110); Potassium 3.9 mmol/L (3.4-5.0); Sodium 138 mmol/L (137-145)
[2020-11-19 12:38] LABS: Basophils Percent Auto 0.5 % (0.2-1.2); Eosinophils Absolute Auto 0.2 K/mm3 (0-0.3); Eosinophils Percent Auto 2.6 % (0-4.4); Hematocrit 36.1 % (42.0-52.0); Hemoglobin 11.6 g/dL (14.0-18.0); Immature Granulocyte Absolute 0.03 K/mm3 (0.00-0.031); Immature Granulocyte Percent A 0.4 % (0-0.5); Lymphocytes Absolute Auto 1.46 K/mm3 (0.9-3.2); Mean Corpuscular HGB Conc 32.1 g/dl (32-36); Mean Corpuscular Hemoglobin 28.7 pg (26-34); Mean Corpuscular Volume 89.4 fl (80-100); Mean Platelet Volume 11.8 fl (7.4-10.4); Monocytes Absolute Auto 0.7 K/mm3 (0.1-0.6); Monocytes Percent Auto 8.7 % (2.6-8.5); Neutrophils Absolute Auto 5.3 K/mm3 (1.3-6.7); Neutrophils Percent Auto 68.8 % (45.5-73.1); Platelet Count Result 150 k/mm3 (150-375); Red Blood Count 4.04 M/mm3 (4.6-6.20); Red Cell Distribution Width 18.3 % (11.5-14.5); White Blood Count 7.7 K/mm3 (4.5-10.0)
[2020-11-19 12:43] LABS: Alanine Aminotransferase 20 U/L (4-50); Albumin Level 2.6 g/dL (3.5-5.1); Alkaline Phosphatase 85 U/L (38-126); Anion Gap 4 mmol/L (8-16); Aspartate Amino Transferase 42 U/L (17-59); Bilirubin,Total 0.2 mg/dL (0.2-1.3); Blood Urea Nitrogen 3 mg/dL (9-20); Calcium 7.7 mg/dL (8.4-10.2); Carbon Dioxide 25 mmol/L (22-30); Chloride 106 mmol/L (98-107); Estimated Glomerular Filt Rate > 60; Glucose 87 mg/dL (75-110); Potassium 3.8 mmol/L (3.4-5.0); Sodium 135 mmol/L (137-145)
== END 2021-01-13 23:59 | disposition home or self-care (01) ==
LOC: HOME HLTH 12:02
PROVIDERS: PCP Emergency Medicine; Visit Provider Internal Medicine Infectious Disease
DX: S72.142D Displaced intertrochanteric fracture of left femur, subsequent encounter for closed fracture with routine healing (principal); T81.49XD Infection following a procedure, other surgical site, subsequent encounter; Z79.2 Long term (current) use of antibiotics
CPT/HCPCS: 80053; 85025; 85652; 86140

== ENCOUNTER 2020-11-23 12:57 | Outpatient (NON) | payer BC, SELFPAY ==
[2020-11-23 14:17] LABS: Basophils Percent Auto 0.3 % (0.2-1.2); Eosinophils Absolute Auto 0.2 K/mm3 (0-0.3); Eosinophils Percent Auto 1.7 % (0-4.4); Hematocrit 39.2 % (42.0-52.0); Hemoglobin 12.2 g/dL (14.0-18.0); Immature Granulocyte Absolute 0.06 K/mm3 (0.00-0.031); Immature Granulocyte Percent A 0.7 % (0-0.5); Lymphocytes Absolute Auto 1.61 K/mm3 (0.9-3.2); Lymphocytes Percent Auto 18.7 % (18.3-44.2); Mean Corpuscular HGB Conc 31.1 g/dl (32-36); Mean Corpuscular Volume 93.1 fl (80-100); Mean Platelet Volume 11.5 fl (7.4-10.4); Monocytes Percent Auto 11.5 % (2.6-8.5); Neutrophils Absolute Auto 5.8 K/mm3 (1.3-6.7); Neutrophils Percent Auto 67.1 % (45.5-73.1); Platelet Count Result 146 k/mm3 (150-375); Red Blood Count 4.21 M/mm3 (4.6-6.20); Red Cell Distribution Width 19.9 % (11.5-14.5); White Blood Count 8.6 K/mm3 (4.5-10.0)
[2020-11-23 14:40] LABS: Alanine Aminotransferase 13 U/L (4-50); Albumin Level 2.8 g/dL (3.5-5.1); Alkaline Phosphatase 82 U/L (38-126); Anion Gap 4 mmol/L (8-16); Aspartate Amino Transferase 29 U/L (17-59); Bilirubin,Total 0.1 mg/dL (0.2-1.3); Blood Urea Nitrogen 2 mg/dL (9-20); Carbon Dioxide 27 mmol/L (22-30); Chloride 106 mmol/L (98-107); Cholesterol 99 mg/dL (0-200); Estimated Glomerular Filt Rate > 60; Glucose 76 mg/dL (75-110); HDL Direct 49 mg/dL; Potassium 3.4 mmol/L (3.4-5.0); Sodium 137 mmol/L (137-145)
[2020-11-23 14:46] LABS: LDL Cholesterol Direct 40 mg/dL
[2020-11-23 15:00] LABS: Triglycerides 80 mg/dL (<150)
[2020-11-23 15:03] LABS: Prostate Specific Antigen 1.7 ng/mL (< OR = 4.0)
[2020-11-23 15:13] LABS: HIV 1/2 Ab P24 Ag Result Negative (Negative)
[2020-11-23 16:46] LABS: Hepatitis C Virus Antibody Negative (Negative)
== END 2020-11-23 12:58 | disposition home or self-care (01) ==
LOC: ANHLAB 13:29 → HOME HLTH 13:31
PROVIDERS: PCP Emergency Medicine; Visit Provider Internal Medicine Infectious Disease
DX: Z00.01 Encounter for general adult medical examination with abnormal findings (principal); Z12.5 Encounter for screening for malignant neoplasm of prostate; T81.49XA Infection following a procedure, other surgical site, initial encounter; Z79.2 Long term (current) use of antibiotics; I70.0 Atherosclerosis of aorta; I10 Essential (primary) hypertension; I70.1 Atherosclerosis of renal artery
CPT/HCPCS: 80053; 80061; 84153; 85025; 86703; 86803; G0103; G0432